=== PATIENT | female | born 1945 | race American Indian/Alaskan Native ===

== ENCOUNTER 2016-10-08 07:56 | Day surgery (SDC) | payer OTHER ==
[2016-10-07 13:28] VITALS: BMI 21.0
[2016-10-08] MEDS ORDERED: PROPOFOL 20 ML ONE ×2 (09:37)
[2016-10-08 10:30] VITALS: TEMP 97.9
[2016-10-08 12:22] VITALS: BP 144/61; PULSE 60
--- NOTE | 2016-10-09 13:25 | PATH ---
Surgical Pathology Report Patient Name: CAROLYN BUENO [facility] Rec. #: [id number] /Age/Gender: 1945 (Age: 71) / F Account: [id number] Location: [facility] Taken: 10/08/2016 Received: 10/08/2016 Reported: 10/09/2016 Physicians: Luis Markham M.D. Specimen(s) Received BX ANTRUM Clinical History Screening/weight loss Normal EGD, colon diverticula Final Diagnosis STOMACH, ANTRUM, BIOPSY: GASTRIC ANTRAL MUCOSA WITH MINIMAL CHRONIC GASTRITIS. IMMUNOSTAIN FOR H. PYLORI IS NEGATIVE FOR ORGANISMS. Electronically Signed Desmond Cazares M.D. Gross Description Received in formalin, labeled "biopsy antrum" are 2 king, irregular portions of soft tissue measuring 0.2-0.4 cm in greatest dimension. The specimens are submitted in toto in one cassette. [facility]/10/08/2016 [facility]/10/08/2016
== END 2016-10-08 11:35 | disposition home or self-care (01) ==
LOC: JASU-ENDO 07:56
PROVIDERS: ATTEND Internal Medicine Gastroenterology
PROC: 0DJ08ZZ Inspection of Upper Intestinal Tract, Via Natural or Artificial Opening Endoscopic (ICD-10-PCS; principal; 2016-10-08 09:45)
DX: R63.4 Abnormal weight loss (principal); R63.0 Anorexia; R14.2 Eructation; R53.1 Weakness; I10 Essential (primary) hypertension
CPT/HCPCS: 88305-TC; 88342-TC

== ENCOUNTER 2021-10-25 14:53 | Inpatient (IN) | payer OTHER ==
[2021-10-25] MEDS ORDERED: ACETAMINOPHEN 1000 MG/100 ML BAG IVPB ONE (16:18)
[2021-10-25] MEDS ORDERED: FAMOTIDINE 20 MG/50 ML IVPB 20 MG/50 ML MG IVPB ONE ×2 (16:18→18:43)
[2021-10-25] MEDS ORDERED: ONDANSETRON 4 MG/2 ML VIAL IVPUSH ONE (16:18)
[2021-10-25] MEDS ORDERED: LACTATED RINGERS SOLUTION 1000 ML INFUS.BAG IV ONE (16:18)
[2021-10-25] MEDS ORDERED: ONDANSETRON 4 MG/2 ML VIAL ONE (17:10)
[2021-10-25] MEDS ORDERED: ACETAMINOPHEN INJECTION 100 ML IVPB ONE (17:10)
[2021-10-25 18:32] LABS: BASO % 0.4 % (0-2.0); EOS % 0.4 % (0-4.5); HEMATOCRIT 41.3 % (32.4-45.2); HEMOGLOBIN 13.6 GM/dL (10.7-15.3); LYMPH % 20.3 % (8-40); MCH 28.8 pg (25.7-33.7); MCHC 32.9 g/dl (32.0-36.0); MEAN CELL VOLUME 87.5 fl (80-96); MEAN PLT VOLUME 7.6 fl (7.5-11.1); MONO % 9.1 % (3.8-10.2); NEUT % 69.8 % (42.8-82.8); PLATELET COUNT 301 10^3/uL (134-434); RBC 4.72 M/mm3 (3.60-5.2); RDW 12.3 % (11.6-15.6); WHITE BLOOD COUNT 8.5 K/mm3 (4.0-10.0)
[2021-10-25 18:39] LABS: INR 1.11 (0.83-1.09); PROTHROMBIN TIME (PATIENT) 12.8 SEC (9.7-13.0)
[2021-10-25 18:42] LABS: ACTIVATED PTT 31.5 SECONDS (25.2-36.5)
[2021-10-25 18:55] LABS: ALBUMIN 3.6 g/dl (3.4-5.0); BLOOD UREA NITROGEN 8.5 mg/dL (7-18); CALCIUM 9.1 mg/dL (8.5-10.1)
[2021-10-25 18:58] LABS: CREATININE 0.7 mg/dL (0.55-1.3)
[2021-10-25 19:00] LABS: BILIRUBIN,TOTAL 0.4 mg/dL (0.2-1); TOT PROT 7.8 g/dl (6.4-8.2)
[2021-10-25 20:15] LABS: URINE APPEARANCE CLEAR; URINE BILIRUBIN NEGATIVE (NEGATIVE); URINE COLOR YELLOW; URINE GLUCOSE (UA) NEGATIVE (NEGATIVE); URINE KETONE TRACE (NEGATIVE); URINE LEUK ESTERASE NEGATIVE (NEGATIVE); URINE NITRITE NEGATIVE (NEGATIVE); URINE PROTEIN NEGATIVE (NEGATIVE); URINE UROBILINOGEN 0.2 mg/dL (0.2-1.0)
[2021-10-25] MEDS ORDERED: AZITHROMYCIN IVPB 500 MG in DEXTROSE 5%-WATER - 250 ML IVPB ONE (21:08)
[2021-10-25] MEDS ORDERED: CEFTRIAXONE 1,000 MG in DEXTROSE 5%-WATER - 50 ML IVPB ONE (21:08)
[2021-10-25] MEDS ORDERED: AZITHROMYCIN IVPB 500 MG/250 ML BAG IVPB ONE (21:26)
[2021-10-25] MEDS ORDERED: CEFTRIAXONE 1 GM/50 ML BAG ONE (21:26)
[2021-10-26 04:07] VITALS: BMI 20.5
[2021-10-26 09:18] LABS: BASO % 0.4 % (0-2.0); EOS % 1.4 % (0-4.5); HEMATOCRIT 37.9 % (32.4-45.2); HEMOGLOBIN 12.7 GM/dL (10.7-15.3); LYMPH % 20.7 % (8-40); MCH 28.9 pg (25.7-33.7); MCHC 33.7 g/dl (32.0-36.0); MEAN CELL VOLUME 85.7 fl (80-96); MEAN PLT VOLUME 7.4 fl (7.5-11.1); MONO % 9.4 % (3.8-10.2); NEUT % 68.1 % (42.8-82.8); PLATELET COUNT 288 10^3/uL (134-434); RBC 4.42 M/mm3 (3.60-5.2); RDW 12.2 % (11.6-15.6); WHITE BLOOD COUNT 6.1 K/mm3 (4.0-10.0)
[2021-10-26 09:28] LABS: ALBUMIN 3.2 g/dl (3.4-5.0); BLOOD UREA NITROGEN 7.4 mg/dL (7-18); CALCIUM 8.7 mg/dL (8.5-10.1)
[2021-10-26 09:31] LABS: CREATININE 0.5 mg/dL (0.55-1.3); PHOSPHOROUS 3.2 mg/dL (2.5-4.9)
[2021-10-26 09:33] LABS: BILIRUBIN,TOTAL 0.9 mg/dL (0.2-1); TOT PROT 7.2 g/dl (6.4-8.2)
[2021-10-26] MEDS: CEFTRIAXONE 1 GM in DEXTROSE 5%-WATER - 50 ML IVPB SCH (10:06)
[2021-10-26] MEDS: ENOXAPARIN NA (PORCINE) 40 MG/0.4 ML DISP.SYRIN SQ SCH (10:07)
[2021-10-26] MEDS: LACTATED RINGERS SOLUTION 1,000 ML/1,000 ML INFUS.BAG IV SCH (13:28)
[2021-10-26] MEDS: AZITHROMYCIN IVPB 500 MG/250 ML BAG IVPB SCH (13:29)
[2021-10-26] MEDS: ACETAMINOPHEN 325 MG TABLET (FP) PO PRN ×2 (15:31→20:52)
[2021-10-26] MEDS: ATORVASTATIN CA 10 MG TABLET (FP) PO SCH (21:59)
[2021-10-26] MEDS: amLODIPine BESYLATE 10 MG TABLET (FP) PO SCH (23:07)
[2021-10-27 08:58] LABS: BASO % 0.6 % (0-2.0); HEMATOCRIT 38.7 % (32.4-45.2); HEMOGLOBIN 12.6 GM/dL (10.7-15.3); LYMPH % 17.4 % (8-40); MCH 28.7 pg (25.7-33.7); MCHC 32.7 g/dl (32.0-36.0); MEAN PLT VOLUME 7.4 fl (7.5-11.1); MONO % 7.6 % (3.8-10.2); NEUT % 72.4 % (42.8-82.8); PLATELET COUNT 285 10^3/uL (134-434); RBC 4.39 M/mm3 (3.60-5.2); RDW 12.5 % (11.6-15.6); WHITE BLOOD COUNT 7.3 K/mm3 (4.0-10.0)
[2021-10-27] MEDS ORDERED: cefTRIAXone SODIUM 1 GM VIAL ONE (09:12)
[2021-10-27] MEDS: ENOXAPARIN NA (PORCINE) 40 MG/0.4 ML DISP.SYRIN SQ SCH (09:14)
[2021-10-27] MEDS: CEFTRIAXONE 1 GM in DEXTROSE 5%-WATER - 50 ML IVPB SCH (09:14)
[2021-10-27 09:26] LABS: BLOOD UREA NITROGEN 5.8 mg/dL (7-18); CALCIUM 8.8 mg/dL (8.5-10.1)
[2021-10-27 09:29] LABS: CREATININE 0.7 mg/dL (0.55-1.3)
[2021-10-27] MEDS: AZITHROMYCIN IVPB 500 MG/250 ML BAG IVPB SCH (10:06)
[2021-10-27] MEDS: LACTATED RINGERS SOLUTION 1,000 ML/1,000 ML INFUS.BAG IV SCH ×2 (11:08→15:45)
[2021-10-27] MEDS: ACETAMINOPHEN 325 MG TABLET (FP) PO PRN ×2 (11:09→22:06)
[2021-10-27 13:50] LABS: ERYTHROCYTE SEDIMENTATION RATE 35 mm/hr (0-30)
[2021-10-27] MEDS: PANTOPRAZOLE 40 MG TABLET PO SCH (17:28)
[2021-10-27] MEDS ORDERED: BENZOCAINE/MENTH/CETYLPYRD CL 1 EACH LOZENGE MM PRN (18:10)
[2021-10-27 18:38] LABS: N-TERMINAL BNP 112.5 pg/ml (5-450)
[2021-10-27] MEDS ORDERED: amLODIPine BESYLATE 10 MG TABLET (FP) PO SCH (22:00)
[2021-10-27] MEDS: amLODIPine BESYLATE 10 MG TABLET (FP) PO SCH (22:07)
[2021-10-27] MEDS: SIMETHICONE 80 MG TAB.CHEW (FP) PO PRN (22:07)
[2021-10-27] MEDS: ATORVASTATIN CA 10 MG TABLET (FP) PO SCH (22:07)
[2021-10-28] MEDS: ENOXAPARIN NA (PORCINE) 40 MG/0.4 ML DISP.SYRIN SQ SCH (09:43)
[2021-10-28] MEDS: CEFTRIAXONE 1 GM in DEXTROSE 5%-WATER - 50 ML IVPB SCH (09:43)
[2021-10-28] MEDS: PANTOPRAZOLE 40 MG TABLET PO SCH (09:43)
[2021-10-28] MEDS: SIMETHICONE 80 MG TAB.CHEW (FP) PO PRN ×2 (09:44→21:08)
[2021-10-28 09:54] LABS: BASO % 0.5 % (0-2.0); EOS % 2.5 % (0-4.5); HEMATOCRIT 40.5 % (32.4-45.2); HEMOGLOBIN 13.2 GM/dL (10.7-15.3); LYMPH % 27.4 % (8-40); MCH 28.5 pg (25.7-33.7); MCHC 32.6 g/dl (32.0-36.0); MEAN CELL VOLUME 87.6 fl (80-96); MEAN PLT VOLUME 7.6 fl (7.5-11.1); MONO % 8.3 % (3.8-10.2); NEUT % 61.3 % (42.8-82.8); PLATELET COUNT 279 10^3/uL (134-434); RBC 4.62 M/mm3 (3.60-5.2); RDW 12.8 % (11.6-15.6); WHITE BLOOD COUNT 6.8 K/mm3 (4.0-10.0)
[2021-10-28 10:14] LABS: BLOOD UREA NITROGEN 5.1 mg/dL (7-18); CALCIUM 8.8 mg/dL (8.5-10.1)
[2021-10-28 10:18] LABS: CREATININE 0.5 mg/dL (0.55-1.3)
[2021-10-28] MEDS: ALBUTEROL SO4 2.5/IPRATROPIUM 0.5 INH SOL 3 ML VIAL.NEB. NEB SCH ×3 (11:31→20:44)
[2021-10-28] MEDS: LACTATED RINGERS SOLUTION 1,000 ML/1,000 ML INFUS.BAG IV SCH (12:07)
[2021-10-28] MEDS: ACETAMINOPHEN 325 MG TABLET (FP) PO PRN (14:41)
[2021-10-28] MEDS: amLODIPine BESYLATE 10 MG TABLET (FP) PO SCH (21:07)
[2021-10-28] MEDS: ATORVASTATIN CA 10 MG TABLET (FP) PO SCH (21:07)
[2021-10-29] MEDS: ALBUTEROL SO4 2.5/IPRATROPIUM 0.5 INH SOL 3 ML VIAL.NEB. NEB SCH ×4 (07:50→20:20)
[2021-10-29] MEDS: ENOXAPARIN NA (PORCINE) 40 MG/0.4 ML DISP.SYRIN SQ SCH (09:33)
[2021-10-29] MEDS: CEFTRIAXONE 1 GM in DEXTROSE 5%-WATER - 50 ML IVPB SCH (09:33)
[2021-10-29 10:19] LABS: BASO % 0.7 % (0-2.0); EOS % 1.6 % (0-4.5); HEMATOCRIT 38.1 % (32.4-45.2); HEMOGLOBIN 12.4 GM/dL (10.7-15.3); LYMPH % 23.1 % (8-40); MCH 28.4 pg (25.7-33.7); MCHC 32.4 g/dl (32.0-36.0); MEAN CELL VOLUME 87.6 fl (80-96); MEAN PLT VOLUME 7.6 fl (7.5-11.1); MONO % 8.4 % (3.8-10.2); NEUT % 66.2 % (42.8-82.8); PLATELET COUNT 240 10^3/uL (134-434); RBC 4.36 M/mm3 (3.60-5.2); RDW 12.6 % (11.6-15.6); WHITE BLOOD COUNT 6.5 K/mm3 (4.0-10.0)
[2021-10-29 10:48] LABS: BLOOD UREA NITROGEN 7.1 mg/dL (7-18); CALCIUM 8.5 mg/dL (8.5-10.1)
[2021-10-29 10:51] LABS: CREATININE 0.8 mg/dL (0.55-1.3)
[2021-10-29] MEDS: methylPREDNISolone NA SUCC 40 MG/1 ML VIAL IVPUSH SCH ×2 (15:11→18:30)
[2021-10-29] MEDS: ATORVASTATIN CA 10 MG TABLET (FP) PO SCH (21:47)
[2021-10-29] MEDS: amLODIPine BESYLATE 10 MG TABLET (FP) PO SCH (21:47)
[2021-10-30] MEDS: methylPREDNISolone NA SUCC 40 MG/1 ML VIAL IVPUSH SCH ×3 (01:32→18:08)
[2021-10-30] MEDS: ALBUTEROL SO4 2.5/IPRATROPIUM 0.5 INH SOL 3 ML VIAL.NEB. NEB SCH ×4 (08:20→20:51)
[2021-10-30 09:01] LABS: BASO % 0.3 % (0-2.0); HEMATOCRIT 37.5 % (32.4-45.2); HEMOGLOBIN 12.5 GM/dL (10.7-15.3); LYMPH % 24.1 % (8-40); MCH 28.5 pg (25.7-33.7); MCHC 33.2 g/dl (32.0-36.0); MEAN CELL VOLUME 85.6 fl (80-96); MEAN PLT VOLUME 7.7 fl (7.5-11.1); MONO % 4.9 % (3.8-10.2); NEUT % 70.7 % (42.8-82.8); PLATELET COUNT 253 10^3/uL (134-434); RBC 4.38 M/mm3 (3.60-5.2); RDW 12.2 % (11.6-15.6); WHITE BLOOD COUNT 4.3 K/mm3 (4.0-10.0)
[2021-10-30 09:31] LABS: BLOOD UREA NITROGEN 8.7 mg/dL (7-18); CALCIUM 8.8 mg/dL (8.5-10.1); MAGNESIUM 2.1 mg/dL (1.8-2.4)
[2021-10-30 09:33] LABS: CREATININE 0.6 mg/dL (0.55-1.3); PHOSPHOROUS 3.6 mg/dL (2.5-4.9)
[2021-10-30] MEDS: CEFTRIAXONE 1 GM in DEXTROSE 5%-WATER - 50 ML IVPB SCH (09:42)
[2021-10-30] MEDS: ACETAMINOPHEN 325 MG TABLET (FP) PO PRN ×2 (11:44→21:11)
[2021-10-30] MEDS: amLODIPine BESYLATE 10 MG TABLET (FP) PO SCH (21:10)
[2021-10-30] MEDS: ATORVASTATIN CA 10 MG TABLET (FP) PO SCH (21:10)
[2021-10-31] MEDS: methylPREDNISolone NA SUCC 40 MG/1 ML VIAL IVPUSH SCH ×3 (01:41→17:00)
[2021-10-31] MEDS: ALBUTEROL SO4 2.5/IPRATROPIUM 0.5 INH SOL 3 ML VIAL.NEB. NEB SCH ×4 (07:41→20:00)
[2021-10-31 09:14] LABS: BASO % 0.1 % (0-2.0); HEMATOCRIT 39.8 % (32.4-45.2); HEMOGLOBIN 13.3 GM/dL (10.7-15.3); LYMPH % 10.3 % (8-40); MCH 29.1 pg (25.7-33.7); MCHC 33.3 g/dl (32.0-36.0); MEAN CELL VOLUME 87.3 fl (80-96); MEAN PLT VOLUME 7.4 fl (7.5-11.1); MONO % 7.4 % (3.8-10.2); NEUT % 82.2 % (42.8-82.8); PLATELET COUNT 282 10^3/uL (134-434); RBC 4.56 M/mm3 (3.60-5.2); RDW 12.6 % (11.6-15.6); WHITE BLOOD COUNT 15.8 K/mm3 (4.0-10.0)
[2021-10-31 09:32] LABS: BLOOD UREA NITROGEN 16.6 mg/dL (7-18); CALCIUM 9.3 mg/dL (8.5-10.1)
[2021-10-31 09:35] LABS: CREATININE 0.8 mg/dL (0.55-1.3)
[2021-10-31] MEDS ORDERED: methylPREDNISolone NA SUCC 40 MG/1 ML VIAL IVPUSH SCH (10:00)
[2021-10-31] MEDS: CEFTRIAXONE 1 GM in DEXTROSE 5%-WATER - 50 ML IVPB SCH (10:58)
[2021-10-31] MEDS ORDERED: CEFTRIAXONE 1 GM in DEXTROSE 5%-WATER - 50 ML IVPB ONE (14:56)
[2021-10-31] MEDS: ACETAMINOPHEN 325 MG TABLET (FP) PO PRN ×2 (15:00→21:04)
[2021-10-31 16:08] LABS: ATYPICAL pANCA <1:20 titer (Neg:<1:20); C-ANCA <1:20 titer (Neg:<1:20)
[2021-10-31] MEDS: guaiFENesin 600 MG TABLET.ER (FP) PO SCH (21:01)
[2021-10-31] MEDS: ATORVASTATIN CA 10 MG TABLET (FP) PO SCH (21:01)
[2021-10-31] MEDS: amLODIPine BESYLATE 10 MG TABLET (FP) PO SCH (21:01)
[2021-11-01] MEDS: methylPREDNISolone NA SUCC 40 MG/1 ML VIAL IVPUSH SCH ×3 (01:10→17:48)
[2021-11-01] MEDS: ALBUTEROL SO4 2.5/IPRATROPIUM 0.5 INH SOL 3 ML VIAL.NEB. NEB SCH ×4 (07:22→20:00)
[2021-11-01] MEDS: CEFTRIAXONE 1 GM in DEXTROSE 5%-WATER - 50 ML IVPB SCH (10:16)
[2021-11-01] MEDS: guaiFENesin 600 MG TABLET.ER (FP) PO SCH ×2 (10:17→21:46)
[2021-11-01] MEDS: ENOXAPARIN NA (PORCINE) 40 MG/0.4 ML DISP.SYRIN SQ SCH (10:17)
[2021-11-01] MEDS: MULTIVITAMINS THER W-MINERALS COMBO TABLET (FP) PO SCH (10:17)
[2021-11-01 11:24] LABS: BASO % 0.2 % (0-2.0); HEMATOCRIT 38.1 % (32.4-45.2); HEMOGLOBIN 12.6 GM/dL (10.7-15.3); LYMPH % 7.2 % (8-40); MCH 28.8 pg (25.7-33.7); MEAN CELL VOLUME 87.2 fl (80-96); MEAN PLT VOLUME 7.4 fl (7.5-11.1); NEUT % 85.6 % (42.8-82.8); PLATELET COUNT 259 10^3/uL (134-434); RBC 4.37 M/mm3 (3.60-5.2); RDW 12.5 % (11.6-15.6); WHITE BLOOD COUNT 13.6 K/mm3 (4.0-10.0)
[2021-11-01 11:45] LABS: CALCIUM 8.4 mg/dL (8.5-10.1)
[2021-11-01 11:48] LABS: CREATININE 0.7 mg/dL (0.55-1.3)
[2021-11-01] MEDS: ACETAMINOPHEN 325 MG TABLET (FP) PO PRN ×2 (12:10→21:44)
[2021-11-01 14:35] LABS: SARS COV-2 MOLECULAR IN-HOUSE NEGATIVE (NEGATIVE)
[2021-11-01] MEDS ORDERED: PIPERACILLIN/TAZOBACTAM 3.375 GM VIAL IVPB ONE (17:36)
[2021-11-01] MEDS: PIPERACILLIN/TAZOB 3.375 GM 3.375 GM in DEXTROSE 5%-WATER - 50 ML IVPB SCH (17:49)
[2021-11-01] MEDS ORDERED: PIPERACILLIN/TAZOB 4.5 GM 4.5 GM in DEXTROSE 5%-WATER 100 ML IVPB SCH (21:00)
[2021-11-01] MEDS: ATORVASTATIN CA 10 MG TABLET (FP) PO SCH (21:46)
[2021-11-01] MEDS: amLODIPine BESYLATE 10 MG TABLET (FP) PO SCH (21:46)
[2021-11-02] MEDS: PIPERACILLIN/TAZOB 3.375 GM 3.375 GM in DEXTROSE 5%-WATER - 50 ML IVPB SCH ×3 (02:03→17:47)
[2021-11-02] MEDS: methylPREDNISolone NA SUCC 40 MG/1 ML VIAL IVPUSH SCH ×3 (02:04→17:47)
[2021-11-02] MEDS: ALBUTEROL SO4 2.5/IPRATROPIUM 0.5 INH SOL 3 ML VIAL.NEB. NEB SCH (07:48)
[2021-11-02] MEDS: MULTIVITAMINS THER W-MINERALS COMBO TABLET (FP) PO SCH (10:09)
[2021-11-02] MEDS: guaiFENesin 600 MG TABLET.ER (FP) PO SCH ×2 (10:09→21:29)
[2021-11-02] MEDS: ENOXAPARIN NA (PORCINE) 40 MG/0.4 ML DISP.SYRIN SQ SCH (10:09)
[2021-11-02] MEDS: ACETAMINOPHEN 325 MG TABLET (FP) PO PRN (10:19)
[2021-11-02 11:26] LABS: BASO % 0.1 % (0-2.0); HEMATOCRIT 39.8 % (32.4-45.2); HEMOGLOBIN 12.9 GM/dL (10.7-15.3); LYMPH % 10.2 % (8-40); MCHC 32.4 g/dl (32.0-36.0); MEAN CELL VOLUME 86.4 fl (80-96); MEAN PLT VOLUME 7.8 fl (7.5-11.1); MONO % 9.3 % (3.8-10.2); NEUT % 80.4 % (42.8-82.8); PLATELET COUNT 288 10^3/uL (134-434); RBC 4.61 M/mm3 (3.60-5.2); RDW 12.5 % (11.6-15.6); WHITE BLOOD COUNT 12.3 K/mm3 (4.0-10.0)
[2021-11-02 11:51] LABS: BLOOD UREA NITROGEN 17.3 mg/dL (7-18); CALCIUM 8.4 mg/dL (8.5-10.1)
[2021-11-02 11:54] LABS: CREATININE 0.7 mg/dL (0.55-1.3)
[2021-11-02 16:10] LABS: MYCOPLASMA PNEUMONIAE,IG G AB 318 U/mL (0-99); MYCOPLASMA PNEUMONIAE,IGM AB <770 U/mL (0-769)
[2021-11-02] MEDS: amLODIPine BESYLATE 10 MG TABLET (FP) PO SCH (21:29)
[2021-11-02] MEDS: ATORVASTATIN CA 10 MG TABLET (FP) PO SCH (21:29)
[2021-11-03] MEDS: methylPREDNISolone NA SUCC 40 MG/1 ML VIAL IVPUSH SCH ×3 (01:03→17:22)
[2021-11-03] MEDS: PIPERACILLIN/TAZOB 3.375 GM 3.375 GM in DEXTROSE 5%-WATER - 50 ML IVPB SCH ×3 (01:03→17:23)
[2021-11-03] MEDS: ACETAMINOPHEN 325 MG TABLET (FP) PO PRN ×2 (01:04→12:18)
[2021-11-03] MEDS: MULTIVITAMINS THER W-MINERALS COMBO TABLET (FP) PO SCH (09:34)
[2021-11-03] MEDS: guaiFENesin 600 MG TABLET.ER (FP) PO SCH ×2 (09:34→21:34)
[2021-11-03] MEDS: ENOXAPARIN NA (PORCINE) 40 MG/0.4 ML DISP.SYRIN SQ SCH (09:35)
[2021-11-03] MEDS ORDERED: AZITHROMYCIN IVPB 500 MG in DEXTROSE 5%-WATER - 250 ML IVPB SCH (10:00)
[2021-11-03] MEDS: AZITHROMYCIN IVPB 500 MG/250 ML BAG IVPB SCH (10:54)
[2021-11-03 11:38] LABS: BASO % 0.1 % (0-2.0); HEMATOCRIT 40.4 % (32.4-45.2); HEMOGLOBIN 13.2 GM/dL (10.7-15.3); LYMPH % 10.2 % (8-40); MCH 28.4 pg (25.7-33.7); MCHC 32.7 g/dl (32.0-36.0); MEAN CELL VOLUME 86.7 fl (80-96); MEAN PLT VOLUME 7.5 fl (7.5-11.1); MONO % 13.4 % (3.8-10.2); NEUT % 76.3 % (42.8-82.8); PLATELET COUNT 285 10^3/uL (134-434); RBC 4.65 M/mm3 (3.60-5.2); RDW 12.6 % (11.6-15.6); WHITE BLOOD COUNT 12.4 K/mm3 (4.0-10.0)
[2021-11-03 12:01] LABS: CALCIUM 8.6 mg/dL (8.5-10.1)
[2021-11-03 12:02] LABS: ALBUMIN 2.9 g/dl (3.4-5.0)
[2021-11-03 12:05] LABS: CREATININE 0.7 mg/dL (0.55-1.3)
[2021-11-03 12:07] LABS: BILIRUBIN,TOTAL 0.4 mg/dL (0.2-1); TOT PROT 6.6 g/dl (6.4-8.2)
[2021-11-03] MEDS ORDERED: LOPERAMIDE HCL 2 MG CAPSULE PO ONE (15:35)
[2021-11-03] MEDS: NYSTATIN 500,000 UNITS/5 ML SUSPENSION PO SCH ×2 (18:14→23:24)
[2021-11-03] MEDS: amLODIPine BESYLATE 10 MG TABLET (FP) PO SCH (21:34)
[2021-11-04] MEDS: PIPERACILLIN/TAZOB 3.375 GM 3.375 GM in DEXTROSE 5%-WATER - 50 ML IVPB SCH ×3 (01:11→17:22)
[2021-11-04] MEDS: methylPREDNISolone NA SUCC 40 MG/1 ML VIAL IVPUSH SCH ×2 (01:11→09:46)
[2021-11-04] MEDS: NYSTATIN 500,000 UNITS/5 ML SUSPENSION PO SCH ×3 (06:18→17:22)
[2021-11-04] MEDS ORDERED: PIPERACILLIN/TAZOBACTAM 3.375 GM VIAL IVPB ONE (09:45)
[2021-11-04] MEDS: guaiFENesin 600 MG TABLET.ER (FP) PO SCH ×2 (09:46→21:42)
[2021-11-04] MEDS: MULTIVITAMINS THER W-MINERALS COMBO TABLET (FP) PO SCH (09:46)
[2021-11-04] MEDS: ACETAMINOPHEN 325 MG TABLET (FP) PO PRN (09:46)
[2021-11-04] MEDS: ENOXAPARIN NA (PORCINE) 40 MG/0.4 ML DISP.SYRIN SQ SCH (09:49)
[2021-11-04 10:41] LABS: BASO % 0.1 % (0-2.0); HEMOGLOBIN 12.9 GM/dL (10.7-15.3); LYMPH % 15.5 % (8-40); MCH 29.2 pg (25.7-33.7); MCHC 33.8 g/dl (32.0-36.0); MEAN CELL VOLUME 86.4 fl (80-96); MEAN PLT VOLUME 7.4 fl (7.5-11.1); MONO % 9.9 % (3.8-10.2); NEUT % 74.5 % (42.8-82.8); PLATELET COUNT 256 10^3/uL (134-434); RDW 12.5 % (11.6-15.6); WHITE BLOOD COUNT 12.6 K/mm3 (4.0-10.0)
[2021-11-04] MEDS: AZITHROMYCIN IVPB 500 MG/250 ML BAG IVPB SCH (10:49)
[2021-11-04 11:05] LABS: ALBUMIN 2.7 g/dl (3.4-5.0); BLOOD UREA NITROGEN 17.6 mg/dL (7-18)
[2021-11-04 11:07] LABS: CALCIUM 8.1 mg/dL (8.5-10.1); MAGNESIUM 2.2 mg/dL (1.8-2.4); PHOSPHOROUS 2.7 mg/dL (2.5-4.9)
[2021-11-04 11:09] LABS: CREATININE 0.7 mg/dL (0.55-1.3)
[2021-11-04 11:10] LABS: BILIRUBIN,TOTAL 0.4 mg/dL (0.2-1)
[2021-11-04] MEDS: amLODIPine BESYLATE 10 MG TABLET (FP) PO SCH (21:42)
[2021-11-05] MEDS: NYSTATIN 500,000 UNITS/5 ML SUSPENSION PO SCH ×4 (00:40→18:15)
[2021-11-05] MEDS ORDERED: PIPERACILLIN/TAZOBACTAM 3.375 GM VIAL IVPB ONE ×2 (01:51→10:23)
[2021-11-05] MEDS: PIPERACILLIN/TAZOB 3.375 GM 3.375 GM in DEXTROSE 5%-WATER - 50 ML IVPB SCH ×3 (02:10→17:27)
[2021-11-05] MEDS: predniSONE 20 MG TABLET (UD) PO SCH (10:26)
[2021-11-05] MEDS: MULTIVITAMINS THER W-MINERALS COMBO TABLET (FP) PO SCH (10:26)
[2021-11-05] MEDS: ENOXAPARIN NA (PORCINE) 40 MG/0.4 ML DISP.SYRIN SQ SCH (10:26)
[2021-11-05] MEDS: guaiFENesin 600 MG TABLET.ER (FP) PO SCH ×2 (10:26→21:38)
[2021-11-05 10:31] LABS: BASO % 0.2 % (0-2.0); EOS % 0.1 % (0-4.5); HEMATOCRIT 38.2 % (32.4-45.2); HEMOGLOBIN 12.9 GM/dL (10.7-15.3); LYMPH % 17.6 % (8-40); MCH 29.4 pg (25.7-33.7); MCHC 33.9 g/dl (32.0-36.0); MEAN CELL VOLUME 86.8 fl (80-96); MEAN PLT VOLUME 7.5 fl (7.5-11.1); MONO % 8.6 % (3.8-10.2); NEUT % 73.5 % (42.8-82.8); PLATELET COUNT 227 10^3/uL (134-434); RDW 12.5 % (11.6-15.6)
[2021-11-05 10:38] LABS: BLOOD UREA NITROGEN 14.5 mg/dL (7-18)
[2021-11-05 10:39] LABS: ALBUMIN 2.5 g/dl (3.4-5.0); CALCIUM 7.7 mg/dL (8.5-10.1)
[2021-11-05 10:42] LABS: CREATININE 0.7 mg/dL (0.55-1.3)
[2021-11-05 10:43] LABS: BILIRUBIN,TOTAL 0.5 mg/dL (0.2-1); TOT PROT 5.7 g/dl (6.4-8.2)
[2021-11-05] MEDS: amLODIPine BESYLATE 10 MG TABLET (FP) PO SCH (21:38)
[2021-11-06] MEDS: PIPERACILLIN/TAZOB 3.375 GM 3.375 GM in DEXTROSE 5%-WATER - 50 ML IVPB SCH ×3 (01:07→17:17)
[2021-11-06] MEDS: NYSTATIN 500,000 UNITS/5 ML SUSPENSION PO SCH ×4 (01:07→17:17)
[2021-11-06] MEDS: predniSONE 20 MG TABLET (UD) PO SCH (10:29)
[2021-11-06] MEDS: guaiFENesin 600 MG TABLET.ER (FP) PO SCH ×2 (10:30→22:10)
[2021-11-06] MEDS: MULTIVITAMINS THER W-MINERALS COMBO TABLET (FP) PO SCH (10:30)
[2021-11-06] MEDS: ENOXAPARIN NA (PORCINE) 40 MG/0.4 ML DISP.SYRIN SQ SCH (10:32)
[2021-11-06 10:52] LABS: BASO % 0.2 % (0-2.0); EOS % 0.3 % (0-4.5); HEMATOCRIT 38.6 % (32.4-45.2); HEMOGLOBIN 12.9 GM/dL (10.7-15.3); LYMPH % 11.9 % (8-40); MCH 28.8 pg (25.7-33.7); MCHC 33.4 g/dl (32.0-36.0); MEAN CELL VOLUME 86.1 fl (80-96); MEAN PLT VOLUME 7.8 fl (7.5-11.1); MONO % 8.6 % (3.8-10.2); PLATELET COUNT 233 10^3/uL (134-434); RBC 4.48 M/mm3 (3.60-5.2); RDW 12.6 % (11.6-15.6); WHITE BLOOD COUNT 11.8 K/mm3 (4.0-10.0)
[2021-11-06 11:01] LABS: MAGNESIUM 2.2 mg/dL (1.8-2.4)
[2021-11-06 11:05] LABS: PHOSPHOROUS 2.3 mg/dL (2.5-4.9)
[2021-11-06] MEDS: amLODIPine BESYLATE 10 MG TABLET (FP) PO SCH (22:10)
[2021-11-07] MEDS: NYSTATIN 500,000 UNITS/5 ML SUSPENSION PO SCH ×4 (01:00→18:03)
[2021-11-07] MEDS: PIPERACILLIN/TAZOB 3.375 GM 3.375 GM in DEXTROSE 5%-WATER - 50 ML IVPB SCH ×3 (01:45→18:03)
[2021-11-07] MEDS: guaiFENesin 600 MG TABLET.ER (FP) PO SCH ×2 (09:31→21:56)
[2021-11-07] MEDS: MULTIVITAMINS THER W-MINERALS COMBO TABLET (FP) PO SCH (09:31)
[2021-11-07] MEDS: SIMETHICONE 80 MG TAB.CHEW (FP) PO PRN (09:31)
[2021-11-07] MEDS: predniSONE 20 MG TABLET (UD) PO SCH (09:31)
[2021-11-07] MEDS: ENOXAPARIN NA (PORCINE) 40 MG/0.4 ML DISP.SYRIN SQ SCH (09:31)
[2021-11-07 11:40] LABS: BASO % 0.1 % (0-2.0); EOS % 0.5 % (0-4.5); HEMATOCRIT 37.7 % (32.4-45.2); HEMOGLOBIN 12.4 GM/dL (10.7-15.3); LYMPH % 11.1 % (8-40); MCH 28.5 pg (25.7-33.7); MCHC 32.9 g/dl (32.0-36.0); MEAN CELL VOLUME 86.6 fl (80-96); MEAN PLT VOLUME 7.7 fl (7.5-11.1); MONO % 6.5 % (3.8-10.2); NEUT % 81.8 % (42.8-82.8); PLATELET COUNT 228 10^3/uL (134-434); RBC 4.35 M/mm3 (3.60-5.2); RDW 12.6 % (11.6-15.6); WHITE BLOOD COUNT 11.6 K/mm3 (4.0-10.0)
[2021-11-07 12:18] LABS: CALCIUM 7.9 mg/dL (8.5-10.1)
[2021-11-07 12:19] LABS: ALBUMIN 2.3 g/dl (3.4-5.0); BLOOD UREA NITROGEN 11.6 mg/dL (7-18); MAGNESIUM 2.2 mg/dL (1.8-2.4)
[2021-11-07 12:22] LABS: CREATININE 0.6 mg/dL (0.55-1.3); PHOSPHOROUS 2.3 mg/dL (2.5-4.9)
[2021-11-07 12:23] LABS: BILIRUBIN,TOTAL 0.5 mg/dL (0.2-1)
[2021-11-07 12:24] LABS: TOT PROT 5.8 g/dl (6.4-8.2)
[2021-11-07] MEDS ORDERED: PIPERACILLIN/TAZOBACTAM 3.375 GM VIAL IVPB ONE (17:49)
[2021-11-07] MEDS: amLODIPine BESYLATE 10 MG TABLET (FP) PO SCH (21:56)
[2021-11-08] MEDS ORDERED: PIPERACILLIN/TAZOBACTAM 3.375 GM VIAL IVPB ONE ×2 (00:45→00:49)
[2021-11-08] MEDS: NYSTATIN 500,000 UNITS/5 ML SUSPENSION PO SCH ×4 (00:51→17:49)
[2021-11-08] MEDS: PIPERACILLIN/TAZOB 3.375 GM 3.375 GM in DEXTROSE 5%-WATER - 50 ML IVPB SCH ×3 (01:00→17:49)
[2021-11-08] MEDS: predniSONE 20 MG TABLET (UD) PO SCH (09:08)
[2021-11-08] MEDS: guaiFENesin 600 MG TABLET.ER (FP) PO SCH ×2 (09:10→21:01)
[2021-11-08] MEDS: MULTIVITAMINS THER W-MINERALS COMBO TABLET (FP) PO SCH (09:10)
[2021-11-08] MEDS: SIMETHICONE 80 MG TAB.CHEW (FP) PO PRN ×2 (09:21→21:01)
[2021-11-08 11:47] LABS: BASO % 0.2 % (0-2.0); EOS % 0.6 % (0-4.5); HEMATOCRIT 39.7 % (32.4-45.2); HEMOGLOBIN 12.7 GM/dL (10.7-15.3); LYMPH % 8.5 % (8-40); MCH 27.7 pg (25.7-33.7); MCHC 31.9 g/dl (32.0-36.0); MEAN CELL VOLUME 86.7 fl (80-96); MONO % 6.6 % (3.8-10.2); NEUT % 84.1 % (42.8-82.8); PLATELET COUNT 261 10^3/uL (134-434); RBC 4.57 M/mm3 (3.60-5.2); RDW 12.6 % (11.6-15.6); WHITE BLOOD COUNT 14.6 K/mm3 (4.0-10.0)
[2021-11-08 12:27] LABS: CALCIUM 8.5 mg/dL (8.5-10.1)
[2021-11-08 12:28] LABS: ALBUMIN 2.5 g/dl (3.4-5.0); BLOOD UREA NITROGEN 8.2 mg/dL (7-18); MAGNESIUM 2.3 mg/dL (1.8-2.4)
[2021-11-08 12:30] LABS: CREATININE 0.7 mg/dL (0.55-1.3)
[2021-11-08 12:31] LABS: BILIRUBIN,TOTAL 0.5 mg/dL (0.2-1)
[2021-11-08 12:32] LABS: TOT PROT 6.1 g/dl (6.4-8.2)
[2021-11-08 20:46] VITALS: RESP 20
[2021-11-08] MEDS: amLODIPine BESYLATE 10 MG TABLET (FP) PO SCH (21:01)
[2021-11-09] MEDS: PIPERACILLIN/TAZOB 3.375 GM 3.375 GM in DEXTROSE 5%-WATER - 50 ML IVPB SCH ×3 (01:09→17:19)
[2021-11-09] MEDS: NYSTATIN 500,000 UNITS/5 ML SUSPENSION PO SCH ×4 (01:09→17:19)
[2021-11-09] MEDS: MULTIVITAMINS THER W-MINERALS COMBO TABLET (FP) PO SCH (09:44)
[2021-11-09] MEDS: guaiFENesin 600 MG TABLET.ER (FP) PO SCH ×2 (09:44→21:29)
[2021-11-09] MEDS: predniSONE 20 MG TABLET (UD) PO SCH (09:44)
[2021-11-09] MEDS: SIMETHICONE 80 MG TAB.CHEW (FP) PO PRN ×2 (09:50→21:29)
[2021-11-09] MEDS: PANTOPRAZOLE 40 MG TABLET PO SCH (10:56)
[2021-11-09] MEDS ORDERED: INSULIN SLIDING SCALE (NOVOLOG) 1 VIAL SQ SCH (11:00)
[2021-11-09 11:19] LABS: BASO % 0.1 % (0-2.0); EOS % 0.7 % (0-4.5); HEMATOCRIT 36.3 % (32.4-45.2); HEMOGLOBIN 12.5 GM/dL (10.7-15.3); LYMPH % 10.2 % (8-40); MCH 29.8 pg (25.7-33.7); MCHC 34.5 g/dl (32.0-36.0); MEAN CELL VOLUME 86.5 fl (80-96); MEAN PLT VOLUME 7.7 fl (7.5-11.1); MONO % 6.5 % (3.8-10.2); NEUT % 82.5 % (42.8-82.8); PLATELET COUNT 228 10^3/uL (134-434); RDW 12.3 % (11.6-15.6); WHITE BLOOD COUNT 14.4 K/mm3 (4.0-10.0)
[2021-11-09] MEDS ORDERED: INSULIN (NOVOLOG) ASPART 100 UNITS/ML 10ML VIAL ONE ×2 (11:23→20:55)
[2021-11-09 11:46] LABS: CALCIUM 8.4 mg/dL (8.5-10.1)
[2021-11-09 11:47] LABS: ALBUMIN 2.5 g/dl (3.4-5.0); BLOOD UREA NITROGEN 13.4 mg/dL (7-18)
[2021-11-09 11:50] LABS: CREATININE 0.6 mg/dL (0.55-1.3); PHOSPHOROUS 2.2 mg/dL (2.5-4.9)
[2021-11-09 11:51] LABS: BILIRUBIN,TOTAL 0.4 mg/dL (0.2-1)
[2021-11-09] MEDS: INSULIN SLIDING SCALE (NOVOLOG) 1 VIAL SQ SCH ×2 (16:49→21:24)
[2021-11-09] MEDS: amLODIPine BESYLATE 10 MG TABLET (FP) PO SCH (21:29)
[2021-11-10] MEDS: NYSTATIN 500,000 UNITS/5 ML SUSPENSION PO SCH ×5 (01:27→23:47)
[2021-11-10] MEDS: PIPERACILLIN/TAZOB 3.375 GM 3.375 GM in DEXTROSE 5%-WATER - 50 ML IVPB SCH ×3 (01:28→17:21)
[2021-11-10] MEDS: PANTOPRAZOLE 40 MG TABLET PO SCH (09:59)
[2021-11-10] MEDS: MULTIVITAMINS THER W-MINERALS COMBO TABLET (FP) PO SCH (09:59)
[2021-11-10] MEDS: guaiFENesin 600 MG TABLET.ER (FP) PO SCH ×2 (09:59→21:01)
[2021-11-10] MEDS: predniSONE 20 MG TABLET (UD) PO SCH (09:59)
[2021-11-10 10:58] LABS: CALCIUM 8.2 mg/dL (8.5-10.1)
[2021-11-10 10:59] LABS: ALBUMIN 2.3 g/dl (3.4-5.0); BLOOD UREA NITROGEN 11.8 mg/dL (7-18); MAGNESIUM 2.2 mg/dL (1.8-2.4)
[2021-11-10 11:00] LABS: PHOSPHOROUS 2.3 mg/dL (2.5-4.9)
[2021-11-10 11:01] LABS: CREATININE 0.7 mg/dL (0.55-1.3); TOT PROT 6.2 g/dl (6.4-8.2)
[2021-11-10 11:05] LABS: BILIRUBIN,TOTAL 0.6 mg/dL (0.2-1)
[2021-11-10] MEDS: INSULIN SLIDING SCALE (NOVOLOG) 1 VIAL SQ SCH ×3 (11:47→21:02)
[2021-11-10 13:55] LABS: BASO % 0.3 % (0-2.0); EOS % 0.2 % (0-4.5); HEMATOCRIT 39.1 % (32.4-45.2); HEMOGLOBIN 12.8 GM/dL (10.7-15.3); LYMPH % 5.7 % (8-40); MCH 28.3 pg (25.7-33.7); MCHC 32.8 g/dl (32.0-36.0); MEAN CELL VOLUME 86.4 fl (80-96); MONO % 3.4 % (3.8-10.2); NEUT % 90.4 % (42.8-82.8); PLATELET COUNT 249 10^3/uL (134-434); RBC 4.52 M/mm3 (3.60-5.2); RDW 12.6 % (11.6-15.6); WHITE BLOOD COUNT 15.5 K/mm3 (4.0-10.0)
[2021-11-10] MEDS: SIMETHICONE 80 MG TAB.CHEW (FP) PO PRN (17:55)
[2021-11-10] MEDS: amLODIPine BESYLATE 10 MG TABLET (FP) PO SCH (21:02)
[2021-11-11] MEDS: PIPERACILLIN/TAZOB 3.375 GM 3.375 GM in DEXTROSE 5%-WATER - 50 ML IVPB SCH ×2 (01:14→10:07)
[2021-11-11] MEDS: NYSTATIN 500,000 UNITS/5 ML SUSPENSION PO SCH ×2 (05:45→12:38)
[2021-11-11] MEDS: INSULIN SLIDING SCALE (NOVOLOG) 1 VIAL SQ SCH ×3 (06:50→11:56)
[2021-11-11] MEDS: PANTOPRAZOLE 40 MG TABLET PO SCH (10:06)
[2021-11-11] MEDS: predniSONE 20 MG TABLET (UD) PO SCH (10:06)
[2021-11-11] MEDS: MULTIVITAMINS THER W-MINERALS COMBO TABLET (FP) PO SCH (10:06)
[2021-11-11] MEDS: guaiFENesin 600 MG TABLET.ER (FP) PO SCH (10:06)
[2021-11-11 14:32] VITALS: BP 146/69; PULSE 82; TEMP 99.1
[2021-11-11] MEDS ORDERED: AMOX TR/POT CLAV 875MG/125MG TABLETS (FP) PO SCH (17:30)
[2021-11-11] MEDS ORDERED: GABAPENTIN 300 MG CAPSULE PO SCH (22:00)
== END 2021-11-11 17:04 | disposition home or self-care (01) | DRG 194 ==
LOC: JER 14:53 → JERBED 21:03 → J7W 10-26 03:33 → J6S 10-26 17:42
PROVIDERS: ADMIT Internal Medicine; ATTEND Internal Medicine
DX: J18.9 Pneumonia, unspecified organism (principal); J44.0 Chronic obstructive pulmonary disease with (acute) lower respiratory infection; R64 Cachexia; N13.0 Hydronephrosis with ureteropelvic junction obstruction; J98.11 Atelectasis; I10 Essential (primary) hypertension; E78.5 Hyperlipidemia, unspecified; E03.9 Hypothyroidism, unspecified; K21.9 Gastro-esophageal reflux disease without esophagitis; Z68.20 Body mass index [BMI] 20.0-20.9, adult; R19.7 Diarrhea, unspecified; R09.02 Hypoxemia; R11.2 Nausea with vomiting, unspecified; D72.829 Elevated white blood cell count, unspecified; B37.9 Candidiasis, unspecified; R10.13 Epigastric pain; R91.1 Solitary pulmonary nodule
CPT/HCPCS: 0241U-QW; 36415; 71045-TC-FY; 71250-TC; 74177-TC; 80048; 80053; 81003; 82103; 82550; 82962; 83520; 83605; 83690; 83735; 83880; 84100; 84439; 84443; 85025; 85610; 85651; 85730; 86038; 86140; 86256; 86738; 86850; 86900; 86901; 87040; 87045; 87046; 87070; 87086; 87205; 87209; 87324; 87449; 87493; 87633; 87899; 93005; 93010; 93306-TC; 94640; 94761; 97116-GP; 97162-GP; 99285-25; C9803-CS; Q9967; U0003; U0005

== ENCOUNTER 2021-11-19 11:34 | Inpatient (IN) | payer OTHER ==
[2021-11-19] MEDS ORDERED: methylPREDNISolone NA SUCC 125 MG/2 ML VIAL IVPUSH ONE (11:51)
[2021-11-19] MEDS ORDERED: ALBUTEROL SO4 2.5/IPRATROPIUM 0.5 INH SOL 3 ML VIAL.NEB. NEB ONE ×4 (11:51→12:49)
[2021-11-19] MEDS ORDERED: methylPREDNISolone NA SUCC 125 MG/2 ML VIAL ONE (12:50)
[2021-11-19 13:15] LABS: INR 1.17 (0.83-1.09); PROTHROMBIN TIME (PATIENT) 13.5 SEC (9.7-13.0)
[2021-11-19 13:16] LABS: VENOUS BASE EXCESS 1.7 mmol/L (-2-2); VENOUS O2 SATURATION 61.4 % (70-80); VENOUS PCO2 53.1 mmHg (38-52); VENOUS PH 7.346 (7.310-7.410)
[2021-11-19 13:17] LABS: HEMATOCRIT 39.3 % (32.4-45.2); HEMOGLOBIN 12.7 GM/dL (10.7-15.3); MCH 28.1 pg (25.7-33.7); MCHC 32.4 g/dl (32.0-36.0); MEAN CELL VOLUME 86.7 fl (80-96); MEAN PLT VOLUME 8.1 fl (7.5-11.1); PLATELET COUNT 199 10^3/uL (134-434); RBC 4.53 M/mm3 (3.60-5.2); RDW 13.2 % (11.6-15.6); WHITE BLOOD COUNT 16.1 K/mm3 (4.0-10.0)
[2021-11-19 13:21] LABS: CHLORIDE 95 mmol/L (98-107); SODIUM 135 mmol/L (136-145)
[2021-11-19 13:25] LABS: ALBUMIN 2.5 g/dl (3.4-5.0); ANION GAP 13 MMOL/L (8-16); BLOOD UREA NITROGEN 17.8 mg/dL (7-18); CO2 27 mmol/L (21-32); GLUCOSE,RANDOM 233 mg/dL (74-106); MAGNESIUM 2.2 mg/dL (1.8-2.4)
[2021-11-19 13:27] LABS: CREATININE 0.9 mg/dL (0.55-1.3); PHOSPHOROUS 3.7 mg/dL (2.5-4.9); SGOT/AST 81 U/L (15-37); SGPT/ALT 82 U/L (13-61)
[2021-11-19 13:28] LABS: BILIRUBIN,TOTAL 0.6 mg/dL (0.2-1)
[2021-11-19 13:45] LABS: ALK PHOS 187 U/L (45-117)
[2021-11-19] MEDS ORDERED: CEFTRIAXONE 1 GM in DEXTROSE 5%-WATER - 50 ML IVPB ONE (13:47)
[2021-11-19] MEDS ORDERED: AZITHROMYCIN IVPB 250 MG in DEXTROSE 5%-WATER - 250 ML IVPB ONE (13:47)
[2021-11-19] MEDS ORDERED: ASPIRIN 81 MG CHEWABLE TABLETS ONE (13:49)
[2021-11-19 13:53] LABS: ANISOCYTOSIS 0; MACROCYTOSIS 0
[2021-11-19 14:05] LABS: LACTIC ACID 7.2 mmol/L (0.4-2.0)
[2021-11-19 14:07] LABS: ACTIVATED PTT 27.2 SECONDS (25.2-36.5)
[2021-11-19 14:25] LABS: N-TERMINAL BNP 1447.7 pg/ml (5-450)
[2021-11-19] MEDS ORDERED: AZITHROMYCIN IVPB 500 MG/250 ML BAG IVPB ONE (16:33)
[2021-11-19] MEDS ORDERED: CEFTRIAXONE 1 GM/50 ML BAG ONE (16:33)
[2021-11-19 17:26] LABS: LACTIC ACID 3.2 mmol/L (0.4-2.0)
[2021-11-19 18:32] LABS: ALLENS TEST POSITIVE; ARTERIAL BLD GAS O2 SATURATION 97.2 % (95-98); ARTERIAL BLOOD GAS BASE EXCESS 8.1 mmol/L (-2-2); ARTERIAL BLOOD GAS PO2 89.9 mmHg (80-100); ARTERIAL BLOOD GAS pH 7.463 (7.350-7.450)
[2021-11-19 18:33] LABS: VENT MODE S/T; VENT RATE 12
[2021-11-19] MEDS ORDERED: PIPERACILLIN/TAZOB 4.5 GM 4.5 GM in DEXTROSE 5%-WATER 100 ML IVPB ONE (19:05)
[2021-11-19] MEDS ORDERED: FLU VACC QS2022-23(6MOS UP)/PF 60 MCG/0.5 ML SYRINGE IM ONE (20:54)
[2021-11-19] MEDS: MUPIROCIN 2% TOPICAL OINTMENT FOR DECOLONIZATION NS SCH (21:45)
[2021-11-19] MEDS: CHLORHEXIDINE GLUCONATE 4% CLEANSER FOR DECOLONIZATION TP SCH (21:45)
[2021-11-19 22:29] LABS: EPI CELLS 15 /uL (0-25.1); HYALINE CASTS 0 /uL (0-3.1); PH,URINE 6.5 (5.0-8.0); URINE APPEARANCE CLEAR; URINE BACTERIA 4 /uL (0-1359); URINE BILIRUBIN NEGATIVE (NEGATIVE); URINE COLOR YELLOW; URINE GLUCOSE (UA) NEGATIVE (NEGATIVE); URINE KETONE NEGATIVE (NEGATIVE); URINE LEUK ESTERASE NEGATIVE (NEGATIVE); URINE NITRITE NEGATIVE (NEGATIVE); URINE PROTEIN 1+ (NEGATIVE); URINE RBC 13 /uL (0-23.9); URINE UROBILINOGEN 0.2 mg/dL (0.2-1.0); URINE WBC 13 /uL (0-25.8)
[2021-11-19] MEDS ORDERED: ALBUTEROL SO4 0.083% IH SOL 2.5 MG/3 ML VIAL.NEB. NEB PRN (23:11)
[2021-11-20] MEDS: PIPERACILLIN/TAZOB 2.25 GM 2.25 GM in DEXTROSE 5%-WATER - 50 ML IVPB SCH ×2 (01:36→10:00)
[2021-11-20] MEDS ORDERED: PIPERACILLIN/TAZOB 2.25 GM 2.25 GM in DEXTROSE 5%-WATER - 50 ML IVPB SCH (02:00)
[2021-11-20] MEDS: methylPREDNISolone NA SUCC 40 MG/1 ML VIAL IVPUSH SCH ×3 (02:41→15:38)
[2021-11-20] MEDS ORDERED: VANCOMYCIN/WATER FOR INJ (PEG) 1,000 MG/200 ML BAG IVPB SCH ×2 (06:00)
[2021-11-20] MEDS ORDERED: VANCOMYCIN 1 GM in D5W (PRE-DOCKED) 1,000 MG/250 ML IVPB SCH (06:00)
[2021-11-20] MEDS ORDERED: SODIUM CHLORIDE 1,000 ML IV SCH (08:00)
[2021-11-20 08:03] LABS: HEMATOCRIT 35.8 % (32.4-45.2); HEMOGLOBIN 11.9 GM/dL (10.7-15.3); MCH 28.7 pg (25.7-33.7); MCHC 33.3 g/dl (32.0-36.0); MEAN CELL VOLUME 86.1 fl (80-96); MEAN PLT VOLUME 8.1 fl (7.5-11.1); PLATELET COUNT 171 10^3/uL (134-434); RBC 4.16 M/mm3 (3.60-5.2); RDW 13.2 % (11.6-15.6); WHITE BLOOD COUNT 18.1 K/mm3 (4.0-10.0)
[2021-11-20 08:25] LABS: CALCIUM 8.3 mg/dL (8.5-10.1)
[2021-11-20 08:26] LABS: ALBUMIN 2.3 g/dl (3.4-5.0); BLOOD UREA NITROGEN 17.5 mg/dL (7-18); MAGNESIUM 2.5 mg/dL (1.8-2.4)
[2021-11-20 08:29] LABS: CREATININE 0.5 mg/dL (0.55-1.3); PHOSPHOROUS 3.9 mg/dL (2.5-4.9)
[2021-11-20 08:32] LABS: BILIRUBIN,TOTAL 0.9 mg/dL (0.2-1); TOT PROT 6.2 g/dl (6.4-8.2)
[2021-11-20 10:22] LABS: ANISOCYTOSIS 1+; MACROCYTOSIS 0; PLATELET ESTIMATE DECREASED
[2021-11-20 10:56] LABS: ARTERIAL BLD GAS O2 SATURATION 97.9 % (95-98); ARTERIAL BLOOD GAS BASE EXCESS 7.2 mmol/L (-2-2); ARTERIAL BLOOD GAS PO2 103.7 mmHg (80-100); ARTERIAL BLOOD GAS pH 7.442 (7.350-7.450)
[2021-11-20 10:57] LABS: ALLENS TEST POSITIVE; VENT MODE S/T
[2021-11-20 10:58] LABS: VENT RATE 12
[2021-11-20] MEDS: AZITHROMYCIN IVPB 500 MG/250 ML BAG IVPB SCH (11:04)
[2021-11-20] MEDS: MUPIROCIN 2% TOPICAL OINTMENT FOR DECOLONIZATION NS SCH ×2 (11:14→21:43)
[2021-11-20] MEDS: TIOTROPIUM BROMIDE 2.5 MCG (SPIRIVA) RESPIMAT INHALER IH SCH (15:44)
[2021-11-20] MEDS ORDERED: FUROSEMIDE 40 MG/4 ML INJECTABLE VIAL IVPUSH ONE (16:37)
[2021-11-20] MEDS: DEXMEDETOMIDINE PREMIX 400 MCG/100 ML BAG IVPB SCH (16:48)
[2021-11-20] MEDS: MEROPENEM 1 GM in DEXTROSE 5%-WATER 100 ML IVPB SCH (18:35)
[2021-11-20 20:19] LABS: HIV INTERPRETATION NEGATIVE (NEGATIVE)
[2021-11-20] MEDS: CHLORHEXIDINE GLUCONATE 4% CLEANSER FOR DECOLONIZATION TP SCH (21:43)
[2021-11-20] MEDS: methylPREDNISolone NA SUCC 125 MG/2 ML VIAL IVPB SCH (21:43)
[2021-11-21] MEDS: ALBUTEROL SO4 2.5/IPRATROPIUM 0.5 INH SOL 3 ML VIAL.NEB. NEB PRN ×4 (00:51→18:30)
[2021-11-21] MEDS: methylPREDNISolone NA SUCC 125 MG/2 ML VIAL IVPB SCH ×4 (02:14→21:15)
[2021-11-21] MEDS: MEROPENEM 1 GM in DEXTROSE 5%-WATER 100 ML IVPB SCH ×3 (02:14→17:55)
[2021-11-21 08:21] LABS: HEMATOCRIT 35.2 % (32.4-45.2); HEMOGLOBIN 11.1 GM/dL (10.7-15.3); MCH 27.5 pg (25.7-33.7); MCHC 31.4 g/dl (32.0-36.0); MEAN CELL VOLUME 87.4 fl (80-96); MEAN PLT VOLUME 8.4 fl (7.5-11.1); PLATELET COUNT 160 10^3/uL (134-434); RBC 4.03 M/mm3 (3.60-5.2); RDW 12.8 % (11.6-15.6); WHITE BLOOD COUNT 16.8 K/mm3 (4.0-10.0)
[2021-11-21 08:40] LABS: CALCIUM 7.7 mg/dL (8.5-10.1)
[2021-11-21 08:41] LABS: MAGNESIUM 2.6 mg/dL (1.8-2.4)
[2021-11-21 08:42] LABS: BLOOD UREA NITROGEN 26.3 mg/dL (7-18)
[2021-11-21 08:45] LABS: BILIRUBIN,TOTAL 0.6 mg/dL (0.2-1); CREATININE 0.5 mg/dL (0.55-1.3); PHOSPHOROUS 2.7 mg/dL (2.5-4.9); TOT PROT 5.5 g/dl (6.4-8.2)
[2021-11-21] MEDS: VANCOMYCIN/WATER FOR INJ (PEG) 1,000 MG/200 ML BAG IVPB SCH (09:08)
[2021-11-21] MEDS: AZITHROMYCIN IVPB 500 MG/250 ML BAG IVPB SCH (09:09)
[2021-11-21 10:01] LABS: ANISOCYTOSIS 0; HELMET CELLS 0; HOWELL-JOLLY BODIES 0; MACROCYTOSIS 0; OVALOCYTE 0; ROULEAU 0; SICKELED CELLS 0; TARGET CELLS 0; TEAR DROP CELLS 0; TOXIC GRANULATION 0
[2021-11-21] MEDS: MUPIROCIN 2% TOPICAL OINTMENT FOR DECOLONIZATION NS SCH ×2 (11:33→21:15)
[2021-11-21] MEDS: TIOTROPIUM BROMIDE 2.5 MCG (SPIRIVA) RESPIMAT INHALER IH SCH (11:34)
[2021-11-21] MEDS: WATER IVPB SCH ×2 (13:36→23:38)
[2021-11-21] MEDS: DEXTROSE 5% IVPB SCH ×2 (13:36→23:38)
[2021-11-21] MEDS: VORICONAZOLE IVPB SCH ×2 (13:36→23:38)
[2021-11-21] MEDS: DEXMEDETOMIDINE PREMIX 400 MCG/100 ML BAG IVPB SCH (17:39)
[2021-11-21] MEDS: CHLORHEXIDINE GLUCONATE 4% CLEANSER FOR DECOLONIZATION TP SCH (21:15)
[2021-11-22] MEDS: MEROPENEM 1 GM in DEXTROSE 5%-WATER 100 ML IVPB SCH ×3 (02:15→17:02)
[2021-11-22] MEDS: methylPREDNISolone NA SUCC 125 MG/2 ML VIAL IVPB SCH ×4 (02:46→21:07)
[2021-11-22 07:31] LABS: HEMATOCRIT 35.4 % (32.4-45.2); HEMOGLOBIN 11.3 GM/dL (10.7-15.3); MCH 27.6 pg (25.7-33.7); MCHC 31.9 g/dl (32.0-36.0); MEAN CELL VOLUME 86.6 fl (80-96); MEAN PLT VOLUME 8.6 fl (7.5-11.1); PLATELET COUNT 159 10^3/uL (134-434); RBC 4.08 M/mm3 (3.60-5.2); RDW 12.9 % (11.6-15.6); WHITE BLOOD COUNT 17.5 K/mm3 (4.0-10.0)
[2021-11-22 07:54] LABS: ALBUMIN 2.2 g/dl (3.4-5.0); BLOOD UREA NITROGEN 24.5 mg/dL (7-18); CALCIUM 7.9 mg/dL (8.5-10.1)
[2021-11-22 07:55] LABS: MAGNESIUM 2.8 mg/dL (1.8-2.4)
[2021-11-22 07:57] LABS: CREATININE 0.4 mg/dL (0.55-1.3)
[2021-11-22 07:59] LABS: BILIRUBIN,TOTAL 0.7 mg/dL (0.2-1); TOT PROT 5.8 g/dl (6.4-8.2)
[2021-11-22 09:05] LABS: ANISOCYTOSIS 0; HELMET CELLS 0; HOWELL-JOLLY BODIES 0; MACROCYTOSIS 0; OVALOCYTE 0; ROULEAU 0; SICKELED CELLS 0; TARGET CELLS 0; TEAR DROP CELLS 0; TOXIC GRANULATION 0
[2021-11-22] MEDS ORDERED: FUROSEMIDE 40 MG/4 ML INJECTABLE VIAL IVPUSH ONE (10:00)
[2021-11-22] MEDS ORDERED: ENOXAPARIN NA (PORCINE) 40 MG/0.4 ML DISP.SYRIN SQ SCH (10:00)
[2021-11-22] MEDS: VANCOMYCIN/WATER FOR INJ (PEG) 1,000 MG/200 ML BAG IVPB SCH (10:15)
[2021-11-22] MEDS: ENOXAPARIN NA (PORCINE) 40 MG/0.4 ML DISP.SYRIN SQ SCH (10:19)
[2021-11-22] MEDS: MUPIROCIN 2% TOPICAL OINTMENT FOR DECOLONIZATION NS SCH ×2 (10:19→21:07)
[2021-11-22] MEDS: METHIMAZOLE 5 MG TABLET PO SCH (10:21)
[2021-11-22] MEDS: PANTOPRAZOLE SODIUM 40 MG VIAL IVPUSH SCH (10:25)
[2021-11-22] MEDS ORDERED: POTASSIUM PHOSPHATE 30 MM in SODIUM CHLORIDE 250 ML IVPB ONE (11:00)
[2021-11-22] MEDS ORDERED: KCL 10 MEQ IVPB 10 MEQ/100 ML INFUS.BAG IVPB SCH ×2 (11:15)
[2021-11-22] MEDS: FLUTICASONE/UMECLIDIN/VILANTER(100-62.5-25 TRELEGY ELLIPTA) INAHLER IH SCH (11:45)
[2021-11-22] MEDS ORDERED: ROCURONIUM BROMIDE 50 MG/5 ML VIAL IVPUSH ONE ×2 (12:23→13:56)
[2021-11-22] MEDS ORDERED: MIDAZOLAM HCL 5 MG/1 ML Single Dose Vial IVPUSH ONE ×2 (12:24→13:00)
[2021-11-22] MEDS ORDERED: MIDAZOLAM IN 0.9 % SOD.CHLORID 1 MG/1 ML PLAST..BAG ONE (12:57)
[2021-11-22] MEDS: DEXTROSE 5% IVPB SCH (13:00)
[2021-11-22] MEDS: WATER IVPB SCH (13:00)
[2021-11-22] MEDS: VORICONAZOLE IVPB SCH (13:00)
[2021-11-22] MEDS: NOREPINEPHRINE BITARTRATE/D5W 8 MG/250 ML BAG IVPB SCH (13:20)
[2021-11-22] MEDS: MIDAZOLAM IN 0.9 % SOD.CHLORID 100 MG/100 ML PLAST..BAG IVPB SCH (13:20)
[2021-11-22] MEDS ORDERED: SODIUM CHLORIDE 500 ML IV STA (13:21)
[2021-11-22] MEDS ORDERED: NOREPINEPHRINE BITARTRATE 4 MG/4 ML ML IV ONE (13:23)
[2021-11-22] MEDS ORDERED: MINERAL OIL/PETROLATUM,WHITE 3.5 GM TUBE OU PRN (14:07)
[2021-11-22] MEDS ORDERED: PROPOFOL 200 MG/20 ML VIAL IVPUSH ONE (16:11)
[2021-11-22] MEDS: PROPOFOL 1,000,000 MCG/100 ML VIAL IVPB SCH (17:01)
[2021-11-22] MEDS: VECURONIUM BROMIDE 100 MG/100 ML BAG IVPB SCH (17:45)
[2021-11-22] MEDS: CHLORHEXIDINE GLUCONATE 4% CLEANSER FOR DECOLONIZATION TP SCH (21:07)
[2021-11-22] MEDS: VASOPRESSIN 40 UNITS/100 ML BAG IV SCH (21:18)
[2021-11-23] MEDS: VORICONAZOLE IVPB SCH ×2 (00:09→11:27)
[2021-11-23] MEDS: DEXTROSE 5% IVPB SCH ×2 (00:09→11:27)
[2021-11-23] MEDS: WATER IVPB SCH ×2 (00:09→11:27)
[2021-11-23] MEDS: MEROPENEM 1 GM in DEXTROSE 5%-WATER 100 ML IVPB SCH ×3 (03:00→17:08)
[2021-11-23] MEDS: methylPREDNISolone NA SUCC 125 MG/2 ML VIAL IVPB SCH ×4 (03:01→21:34)
[2021-11-23] MEDS: NOREPINEPHRINE BITARTRATE/D5W 8 MG/250 ML BAG IVPB SCH ×3 (06:41→17:07)
[2021-11-23 08:43] LABS: HEMATOCRIT 33.3 % (32.4-45.2); HEMOGLOBIN 10.2 GM/dL (10.7-15.3); MCH 27.6 pg (25.7-33.7); MCHC 30.6 g/dl (32.0-36.0); MEAN PLT VOLUME 8.9 fl (7.5-11.1); PLATELET COUNT 142 10^3/uL (134-434); RDW 13.8 % (11.6-15.6); WHITE BLOOD COUNT 15.2 K/mm3 (4.0-10.0)
[2021-11-23 08:51] LABS: CHLORIDE 98 mmol/L (98-107); SODIUM 142 mmol/L (136-145)
[2021-11-23] MEDS: VANCOMYCIN/WATER FOR INJ (PEG) 1,000 MG/200 ML BAG IVPB SCH (08:52)
[2021-11-23 08:54] LABS: ALBUMIN 1.9 g/dl (3.4-5.0); ANION GAP 5 MMOL/L (8-16); BLOOD UREA NITROGEN 43.7 mg/dL (7-18); CALCIUM 7.3 mg/dL (8.5-10.1); CO2 39 mmol/L (21-32); MAGNESIUM 2.7 mg/dL (1.8-2.4)
[2021-11-23 08:57] LABS: CREATININE 0.8 mg/dL (0.55-1.3); SGOT/AST 73 U/L (15-37); SGPT/ALT 82 U/L (13-61)
[2021-11-23 08:59] LABS: BILIRUBIN,TOTAL 0.4 mg/dL (0.2-1); TOT PROT 5.1 g/dl (6.4-8.2)
[2021-11-23 09:02] LABS: ALK PHOS 177 U/L (45-117); GLUCOSE,RANDOM 462 mg/dL (74-106)
[2021-11-23 09:24] LABS: ANISOCYTOSIS 0; HELMET CELLS 0; HOWELL-JOLLY BODIES 0; MACROCYTOSIS 0; OVALOCYTE 0; ROULEAU 0; SICKELED CELLS 0; TARGET CELLS 0; TEAR DROP CELLS 0; TOXIC GRANULATION 0
[2021-11-23] MEDS: ENOXAPARIN NA (PORCINE) 40 MG/0.4 ML DISP.SYRIN SQ SCH (09:52)
[2021-11-23] MEDS: MUPIROCIN 2% TOPICAL OINTMENT FOR DECOLONIZATION NS SCH ×2 (09:52→21:35)
[2021-11-23] MEDS: INSULIN SLIDING SCALE (NOVOLOG) 1 VIAL SQ SCH ×3 (09:54→21:38)
[2021-11-23] MEDS: PANTOPRAZOLE SODIUM 40 MG VIAL IVPUSH SCH (10:01)
[2021-11-23] MEDS: METHIMAZOLE 5 MG TABLET PO SCH (10:02)
[2021-11-23] MEDS: FLUTICASONE/UMECLIDIN/VILANTER(100-62.5-25 TRELEGY ELLIPTA) INAHLER IH SCH (10:59)
[2021-11-23 12:29] LABS: ARTERIAL BLD GAS O2 SATURATION 90.7 % (95-98); ARTERIAL BLOOD GAS BASE EXCESS 6.4 mmol/L (-2-2); ARTERIAL BLOOD GAS PO2 73.8 mmHg (80-100); ARTERIAL BLOOD GAS pH 7.218 (7.350-7.450)
[2021-11-23] MEDS: PROPOFOL 1,000,000 MCG/100 ML VIAL IVPB SCH (12:59)
[2021-11-23] MEDS: VASOPRESSIN 40 UNITS/100 ML BAG IV SCH ×2 (13:01→22:08)
[2021-11-23] MEDS: MIDAZOLAM IN 0.9 % SOD.CHLORID 100 MG/100 ML PLAST..BAG IVPB SCH (13:02)
[2021-11-23] MEDS: ALBUTEROL SO4 2.5/IPRATROPIUM 0.5 INH SOL 3 ML VIAL.NEB. NEB SCH ×2 (14:40→20:30)
[2021-11-23] MEDS: VECURONIUM BROMIDE 100 MG/100 ML BAG IVPB SCH (14:46)
[2021-11-23 15:08] LABS: THYROID STIM IMMUNOGLOBULIN <0.10 IU/L (0.00-0.55)
[2021-11-23] MEDS: CHLORHEXIDINE GLUCONATE 4% CLEANSER FOR DECOLONIZATION TP SCH (21:35)
[2021-11-23] MEDS: INSULIN (LEVEMIR) 100 UNITS/ML UNITS SQ SCH (21:38)
[2021-11-24] MEDS: MEROPENEM 1 GM in DEXTROSE 5%-WATER 100 ML IVPB SCH ×3 (01:30→17:50)
[2021-11-24] MEDS: methylPREDNISolone NA SUCC 125 MG/2 ML VIAL IVPB SCH ×4 (02:15→21:36)
[2021-11-24] MEDS: WATER IVPB SCH ×3 (03:33→23:54)
[2021-11-24] MEDS: VORICONAZOLE IVPB SCH ×3 (03:33→23:54)
[2021-11-24] MEDS: DEXTROSE 5% IVPB SCH ×3 (03:33→23:54)
[2021-11-24] MEDS: INSULIN SLIDING SCALE (NOVOLOG) 1 VIAL SQ SCH ×4 (04:15→21:37)
[2021-11-24] MEDS: MIDAZOLAM IN 0.9 % SOD.CHLORID 100 MG/100 ML PLAST..BAG IVPB SCH ×2 (04:54→13:56)
[2021-11-24] MEDS: VASOPRESSIN 40 UNITS/100 ML BAG IV SCH ×2 (04:55→21:36)
[2021-11-24] MEDS: NOREPINEPHRINE BITARTRATE/D5W 8 MG/250 ML BAG IVPB SCH ×2 (06:34→13:57)
[2021-11-24 06:42] LABS: ARTERIAL BLOOD GAS BASE EXCESS 9.9 mmol/L (-2-2); ARTERIAL BLOOD GAS PO2 57.1 mmHg (80-100); ARTERIAL BLOOD GAS pH 7.321 (7.350-7.450)
[2021-11-24 06:48] LABS: VENT MODE A/C; VENT RATE 14
[2021-11-24] MEDS: INSULIN (LEVEMIR) 100 UNITS/ML UNITS SQ SCH ×2 (07:07→21:37)
[2021-11-24] MEDS: VECURONIUM BROMIDE 100 MG/100 ML BAG IVPB SCH ×2 (07:34→13:57)
[2021-11-24] MEDS: ALBUTEROL SO4 2.5/IPRATROPIUM 0.5 INH SOL 3 ML VIAL.NEB. NEB SCH ×3 (07:45→20:20)
[2021-11-24 08:22] LABS: HEMATOCRIT 34.1 % (32.4-45.2); HEMOGLOBIN 10.7 GM/dL (10.7-15.3); MCH 27.8 pg (25.7-33.7); MCHC 31.3 g/dl (32.0-36.0); MEAN CELL VOLUME 88.8 fl (80-96); MEAN PLT VOLUME 9.2 fl (7.5-11.1); PLATELET COUNT 118 10^3/uL (134-434); RBC 3.84 M/mm3 (3.60-5.2); RDW 13.5 % (11.6-15.6); WHITE BLOOD COUNT 15.1 K/mm3 (4.0-10.0)
[2021-11-24 08:31] LABS: CALCIUM 7.3 mg/dL (8.5-10.1)
[2021-11-24 08:33] LABS: ALBUMIN 1.8 g/dl (3.4-5.0); MAGNESIUM 2.7 mg/dL (1.8-2.4)
[2021-11-24 08:35] LABS: CREATININE 0.7 mg/dL (0.55-1.3); PHOSPHOROUS 2.9 mg/dL (2.5-4.9)
[2021-11-24 08:36] LABS: BILIRUBIN,TOTAL 0.2 mg/dL (0.2-1); TOT PROT 4.8 g/dl (6.4-8.2)
[2021-11-24] MEDS: VANCOMYCIN/WATER FOR INJ (PEG) 1,000 MG/200 ML BAG IVPB SCH (08:52)
[2021-11-24] MEDS: PANTOPRAZOLE SODIUM 40 MG VIAL IVPUSH SCH (09:46)
[2021-11-24] MEDS: ENOXAPARIN NA (PORCINE) 40 MG/0.4 ML DISP.SYRIN SQ SCH (09:46)
[2021-11-24] MEDS: MUPIROCIN 2% TOPICAL OINTMENT FOR DECOLONIZATION NS SCH (09:46)
[2021-11-24] MEDS: FLUTICASONE/UMECLIDIN/VILANTER(100-62.5-25 TRELEGY ELLIPTA) INAHLER IH SCH (09:47)
[2021-11-24] MEDS: METHIMAZOLE 5 MG TABLET PO SCH (09:51)
[2021-11-24 10:03] LABS: ANISOCYTOSIS 1+; MACROCYTOSIS 0; OVALOCYTE 1+
[2021-11-24] MEDS: PROPOFOL 1,000,000 MCG/100 ML VIAL IVPB SCH (13:09)
[2021-11-24] MEDS: CHLORHEXIDINE GLUCONATE 4% CLEANSER FOR DECOLONIZATION TP SCH (21:37)
[2021-11-24] MEDS ORDERED: MILRINONE 20MG/100ML IVPB - 20,000 MCG/100 ML ML IVPB SCH (22:30)
[2021-11-24] MEDS: FENTANYL NS IVPB 500 MCG/100 ML BAG IVPB SCH (22:45)
[2021-11-25] MEDS: MEROPENEM 1 GM in DEXTROSE 5%-WATER 100 ML IVPB SCH ×3 (01:20→17:07)
[2021-11-25] MEDS: methylPREDNISolone NA SUCC 125 MG/2 ML VIAL IVPB SCH ×4 (02:18→21:24)
[2021-11-25] MEDS: INSULIN SLIDING SCALE (NOVOLOG) 1 VIAL SQ SCH ×4 (02:18→21:25)
[2021-11-25] MEDS: INSULIN (LEVEMIR) 100 UNITS/ML UNITS SQ SCH ×2 (06:00→21:25)
[2021-11-25 06:34] LABS: ARTERIAL BLOOD GAS BASE EXCESS 5.2 mmol/L (-2-2); ARTERIAL BLOOD GAS PO2 92.2 mmHg (80-100)
[2021-11-25 06:38] LABS: VENT MODE A/C; VENT RATE 18
[2021-11-25 07:47] LABS: HEMATOCRIT 32.5 % (32.4-45.2); HEMOGLOBIN 10.4 GM/dL (10.7-15.3); MCH 28.4 pg (25.7-33.7); MCHC 31.8 g/dl (32.0-36.0); MEAN CELL VOLUME 89.1 fl (80-96); MEAN PLT VOLUME 9.5 fl (7.5-11.1); PLATELET COUNT 83 10^3/uL (134-434); RBC 3.65 M/mm3 (3.60-5.2); RDW 13.4 % (11.6-15.6); WHITE BLOOD COUNT 15.7 K/mm3 (4.0-10.0)
[2021-11-25 08:12] LABS: ALBUMIN 1.6 g/dl (3.4-5.0); BLOOD UREA NITROGEN 78.8 mg/dL (7-18); CALCIUM 7.5 mg/dL (8.5-10.1)
[2021-11-25 08:16] LABS: CREATININE 0.7 mg/dL (0.55-1.3); PHOSPHOROUS 2.3 mg/dL (2.5-4.9)
[2021-11-25 08:17] LABS: BILIRUBIN,TOTAL 0.2 mg/dL (0.2-1); TOT PROT 4.4 g/dl (6.4-8.2)
[2021-11-25] MEDS: ALBUTEROL SO4 2.5/IPRATROPIUM 0.5 INH SOL 3 ML VIAL.NEB. NEB SCH ×3 (08:38→20:05)
[2021-11-25] MEDS: VANCOMYCIN/WATER FOR INJ (PEG) 1,000 MG/200 ML BAG IVPB SCH (08:45)
[2021-11-25 08:49] LABS: ANISOCYTOSIS 1+; MACROCYTOSIS 0; PLATELET ESTIMATE DECREASED
[2021-11-25] MEDS: MIDAZOLAM IN 0.9 % SOD.CHLORID 100 MG/100 ML PLAST..BAG IVPB SCH ×2 (09:13→13:14)
[2021-11-25] MEDS: ENOXAPARIN NA (PORCINE) 40 MG/0.4 ML DISP.SYRIN SQ SCH (10:50)
[2021-11-25] MEDS: PANTOPRAZOLE SODIUM 40 MG VIAL IVPUSH SCH (10:50)
[2021-11-25] MEDS: DEXTROSE 5% IVPB SCH ×2 (11:20→23:14)
[2021-11-25] MEDS: VORICONAZOLE IVPB SCH ×2 (11:20→23:14)
[2021-11-25] MEDS: WATER IVPB SCH ×2 (11:20→23:14)
[2021-11-25] MEDS: MILRINONE 20MG/100ML IVPB - 20,000 MCG/100 ML ML IVPB SCH (11:21)
[2021-11-25] MEDS: FLUTICASONE/UMECLIDIN/VILANTER(100-62.5-25 TRELEGY ELLIPTA) INAHLER IH SCH (11:21)
[2021-11-25 12:08] LABS: ARTERIAL BLD GAS O2 SATURATION 98.1 % (95-98); ARTERIAL BLOOD GAS BASE EXCESS 9.8 mmol/L (-2-2); ARTERIAL BLOOD GAS PO2 128.4 mmHg (80-100); ARTERIAL BLOOD GAS pH 7.307 (7.350-7.450)
[2021-11-25 12:10] LABS: VENT MODE A/C; VENT RATE 22
[2021-11-25] MEDS: PROPOFOL 1,000,000 MCG/100 ML VIAL IVPB SCH (13:13)
[2021-11-25] MEDS: VASOPRESSIN 40 UNITS/100 ML BAG IV SCH ×2 (13:14→21:23)
[2021-11-25] MEDS: METHIMAZOLE 5 MG TABLET PO SCH (13:15)
[2021-11-25] MEDS: NOREPINEPHRINE BITARTRATE/D5W 8 MG/250 ML BAG IVPB SCH (17:09)
[2021-11-25] MEDS: VECURONIUM BROMIDE 100 MG/100 ML BAG IVPB SCH (17:13)
[2021-11-25] MEDS: FENTANYL NS IVPB 500 MCG/100 ML BAG IVPB SCH ×2 (17:33→23:01)
[2021-11-25 20:48] LABS: ARTERIAL BLD GAS O2 SATURATION 90.1 % (95-98); ARTERIAL BLOOD GAS BASE EXCESS 7.1 mmol/L (-2-2); ARTERIAL BLOOD GAS PO2 66.6 mmHg (80-100)
[2021-11-25 20:52] LABS: VENT MODE V-A/C; VENT RATE 22
[2021-11-25] MEDS: CHLORHEXIDINE GLUCONATE 4% CLEANSER FOR DECOLONIZATION TP SCH (21:24)
[2021-11-26] MEDS: MEROPENEM 1 GM in DEXTROSE 5%-WATER 100 ML IVPB SCH ×3 (02:40→18:17)
[2021-11-26] MEDS: methylPREDNISolone NA SUCC 125 MG/2 ML VIAL IVPB SCH ×2 (02:40→09:27)
[2021-11-26] MEDS: INSULIN SLIDING SCALE (NOVOLOG) 1 VIAL SQ SCH ×2 (02:44→23:34)
[2021-11-26] MEDS: INSULIN (LEVEMIR) 100 UNITS/ML UNITS SQ SCH (06:09)
[2021-11-26 06:25] LABS: ARTERIAL BLD GAS O2 SATURATION 81.4 % (95-98); ARTERIAL BLOOD GAS BASE EXCESS 3.4 mmol/L (-2-2); ARTERIAL BLOOD GAS PO2 58.9 mmHg (80-100)
[2021-11-26 06:44] LABS: VENT MODE A/C; VENT RATE 25
[2021-11-26 06:56] LABS: ARTERIAL BLOOD GAS pH 7.172 (7.350-7.450)
[2021-11-26 08:01] LABS: HEMATOCRIT 33.6 % (32.4-45.2); HEMOGLOBIN 10.3 GM/dL (10.7-15.3); MCH 27.6 pg (25.7-33.7); MCHC 30.7 g/dl (32.0-36.0); MEAN CELL VOLUME 89.9 fl (80-96); MEAN PLT VOLUME 10.1 fl (7.5-11.1); PLATELET COUNT 73 10^3/uL (134-434); RBC 3.74 M/mm3 (3.60-5.2); RDW 13.4 % (11.6-15.6); WHITE BLOOD COUNT 17.2 K/mm3 (4.0-10.0)
[2021-11-26] MEDS: ALBUTEROL SO4 2.5/IPRATROPIUM 0.5 INH SOL 3 ML VIAL.NEB. NEB SCH ×3 (08:16→20:00)
[2021-11-26] MEDS ORDERED: INSULIN (LEVEMIR) 100 UNITS/ML UNITS SQ SCH (08:16)
[2021-11-26 08:23] LABS: ALBUMIN 1.7 g/dl (3.4-5.0); BLOOD UREA NITROGEN 98.2 mg/dL (7-18); CALCIUM 7.5 mg/dL (8.5-10.1); MAGNESIUM 3.3 mg/dL (1.8-2.4)
[2021-11-26] MEDS ORDERED: SODIUM CHLORIDE 250 ML IV STA (08:25)
[2021-11-26 08:26] LABS: CREATININE 0.9 mg/dL (0.55-1.3); PHOSPHOROUS 2.8 mg/dL (2.5-4.9)
[2021-11-26 08:27] LABS: BILIRUBIN,TOTAL 0.2 mg/dL (0.2-1); TOT PROT 4.7 g/dl (6.4-8.2)
[2021-11-26] MEDS ORDERED: DEXTROSE 50%-WATER 25 GM/50 ML DISP.SYRIN IVPUSH PRN (08:28)
[2021-11-26] MEDS ORDERED: INSULIN REGULAR HUMAN 100 UNITS/ML *VIAL* (FOR IVP) IVPUSH ONE (08:28)
[2021-11-26] MEDS ORDERED: INSULIN REGULAR 100 UNITS in SODIUM CHLORIDE 99 ML IVPB SCH (08:30)
[2021-11-26] MEDS: MILRINONE 20MG/100ML IVPB - 20,000 MCG/100 ML ML IVPB SCH ×3 (08:32→11:36)
[2021-11-26] MEDS: VANCOMYCIN/WATER FOR INJ (PEG) 1,000 MG/200 ML BAG IVPB SCH (08:50)
[2021-11-26] MEDS: PANTOPRAZOLE SODIUM 40 MG VIAL IVPUSH SCH (09:24)
[2021-11-26 09:26] LABS: ANISOCYTOSIS 0; HELMET CELLS 0; HOWELL-JOLLY BODIES 0; MACROCYTOSIS 0; OVALOCYTE 0; ROULEAU 0; SICKELED CELLS 0; TARGET CELLS 0; TEAR DROP CELLS 0; TOXIC GRANULATION 0
[2021-11-26] MEDS: ENOXAPARIN NA (PORCINE) 40 MG/0.4 ML DISP.SYRIN SQ SCH (09:27)
[2021-11-26] MEDS: FLUTICASONE/UMECLIDIN/VILANTER(100-62.5-25 TRELEGY ELLIPTA) INAHLER IH SCH (09:27)
[2021-11-26] MEDS: FENTANYL NS IVPB 500 MCG/100 ML BAG IVPB SCH ×2 (09:29→22:53)
[2021-11-26] MEDS: NOREPINEPHRINE BITARTRATE/D5W 8 MG/250 ML BAG IVPB SCH ×2 (09:36→14:51)
[2021-11-26] MEDS: METHIMAZOLE 5 MG TABLET NGT SCH (10:57)
[2021-11-26] MEDS: MIDAZOLAM IN 0.9 % SOD.CHLORID 100 MG/100 ML PLAST..BAG IVPB SCH ×2 (11:36→13:04)
[2021-11-26] MEDS: DEXTROSE 5% IVPB SCH ×2 (12:50→23:15)
[2021-11-26] MEDS: VORICONAZOLE IVPB SCH ×2 (12:50→23:15)
[2021-11-26] MEDS: PROPOFOL 1,000,000 MCG/100 ML VIAL IVPB SCH (12:50)
[2021-11-26] MEDS: WATER IVPB SCH ×2 (12:50→23:15)
[2021-11-26 13:12] LABS: ARTERIAL BLD GAS O2 SATURATION 95.2 % (95-98); ARTERIAL BLOOD GAS BASE EXCESS 2.6 mmol/L (-2-2); ARTERIAL BLOOD GAS PO2 97.7 mmHg (80-100)
[2021-11-26 13:13] LABS: ALLENS TEST POSITIVE
[2021-11-26 13:14] LABS: VENT MODE A/C; VENT RATE 30
[2021-11-26 13:16] LABS: ARTERIAL BLOOD GAS pH 7.174 (7.350-7.450)
[2021-11-26] MEDS: SODIUM BICARBONATE 8.4% 50 MEQ/50 ML DISP.SYRIN IVPUSH SCH ×2 (14:30→18:30)
[2021-11-26] MEDS: VECURONIUM BROMIDE 100 MG/100 ML BAG IVPB SCH (14:51)
[2021-11-26] MEDS: VASOPRESSIN 40 UNITS/100 ML BAG IV SCH (21:42)
[2021-11-26] MEDS: CHLORHEXIDINE GLUCONATE 4% CLEANSER FOR DECOLONIZATION TP SCH (21:43)
[2021-11-27] MEDS: SODIUM BICARBONATE 8.4% 50 MEQ/50 ML DISP.SYRIN IVPUSH SCH ×4 (01:45→19:18)
[2021-11-27] MEDS: MEROPENEM 1 GM in DEXTROSE 5%-WATER 100 ML IVPB SCH ×3 (01:45→17:37)
[2021-11-27] MEDS: INSULIN SLIDING SCALE (NOVOLOG) 1 VIAL SQ SCH ×6 (02:00→23:00)
[2021-11-27 06:39] LABS: ARTERIAL BLD GAS O2 SATURATION 90.9 % (95-98); ARTERIAL BLOOD GAS BASE EXCESS 9.8 mmol/L (-2-2); ARTERIAL BLOOD GAS PO2 66.9 mmHg (80-100); ARTERIAL BLOOD GAS pH 7.321 (7.350-7.450)
[2021-11-27 06:45] LABS: ALLENS TEST POSITIVE; VENT MODE A/C; VENT RATE 30
[2021-11-27 07:55] LABS: HEMATOCRIT 28.5 % (32.4-45.2); MCH 27.6 pg (25.7-33.7); MCHC 31.5 g/dl (32.0-36.0); MEAN CELL VOLUME 87.8 fl (80-96); MEAN PLT VOLUME 10.3 fl (7.5-11.1); PLATELET COUNT 47 10^3/uL (134-434); RBC 3.25 M/mm3 (3.60-5.2); RDW 13.2 % (11.6-15.6); WHITE BLOOD COUNT 17.3 K/mm3 (4.0-10.0)
[2021-11-27 08:07] LABS: CHLORIDE 95 mmol/L (98-107); SODIUM 138 mmol/L (136-145)
[2021-11-27 08:09] LABS: ALBUMIN 1.6 g/dl (3.4-5.0); CALCIUM 7.3 mg/dL (8.5-10.1); GLUCOSE,RANDOM 200 mg/dL (74-106)
[2021-11-27 08:10] LABS: ANION GAP 3 MMOL/L (8-16); CO2 39 mmol/L (21-32); MAGNESIUM 3.2 mg/dL (1.8-2.4)
[2021-11-27 08:12] LABS: SGPT/ALT 138 U/L (13-61)
[2021-11-27 08:13] LABS: CREATININE 1.1 mg/dL (0.55-1.3); PHOSPHOROUS 2.6 mg/dL (2.5-4.9); SGOT/AST 154 U/L (15-37)
[2021-11-27 08:14] LABS: BILIRUBIN,TOTAL 0.6 mg/dL (0.2-1); TOT PROT 4.2 g/dl (6.4-8.2)
[2021-11-27 08:15] LABS: ALK PHOS 181 U/L (45-117)
[2021-11-27 08:16] LABS: BLOOD UREA NITROGEN 114.5 mg/dL (7-18)
[2021-11-27] MEDS: ALBUTEROL SO4 2.5/IPRATROPIUM 0.5 INH SOL 3 ML VIAL.NEB. NEB SCH ×3 (08:35→20:05)
[2021-11-27] MEDS: VANCOMYCIN/WATER FOR INJ (PEG) 1,000 MG/200 ML BAG IVPB SCH (08:55)
[2021-11-27] MEDS ORDERED: INSULIN SLIDING SCALE (NOVOLOG) 1 VIAL SQ ONE (09:10)
[2021-11-27] MEDS ORDERED: CALCIUM GLUCONATE 10% - 1,000 MG/10 ML VIAL IVPUSH ONE (09:11)
[2021-11-27] MEDS ORDERED: DEXTROSE 50%-WATER - 25 GM/50 ML VIAL IVPUSH ONE (09:11)
[2021-11-27 09:43] LABS: ANISOCYTOSIS 0; MACROCYTOSIS 0; OVALOCYTE 1+
[2021-11-27] MEDS ORDERED: methylPREDNISolone NA SUCC 40 MG/1 ML VIAL IVPUSH SCH (10:00)
[2021-11-27] MEDS: SODIUM ZIRCONIUM CYCLOSILICATE (LOKELMA) 5 GM PACKET GT SCH (10:19)
[2021-11-27] MEDS: PANTOPRAZOLE SODIUM 40 MG VIAL IVPUSH SCH (10:22)
[2021-11-27] MEDS: methylPREDNISolone NA SUCC 125 MG/2 ML VIAL IVPUSH SCH (10:22)
[2021-11-27] MEDS: ENOXAPARIN NA (PORCINE) 40 MG/0.4 ML DISP.SYRIN SQ SCH (10:22)
[2021-11-27] MEDS: FLUTICASONE/UMECLIDIN/VILANTER(100-62.5-25 TRELEGY ELLIPTA) INAHLER IH SCH (10:23)
[2021-11-27] MEDS: FENTANYL NS IVPB 500 MCG/100 ML BAG IVPB SCH (10:25)
[2021-11-27] MEDS ORDERED: INSULIN REGULAR HUMAN 100 UNITS/ML *VIAL IVPUSH ONE (11:15)
[2021-11-27] MEDS: METHIMAZOLE 5 MG TABLET NGT SCH (12:42)
[2021-11-27] MEDS: MIDAZOLAM IN 0.9 % SOD.CHLORID 100 MG/100 ML PLAST..BAG IVPB SCH (13:06)
[2021-11-27] MEDS: NOREPINEPHRINE BITARTRATE/D5W 8 MG/250 ML BAG IVPB SCH (13:50)
[2021-11-27] MEDS: VECURONIUM BROMIDE 100 MG/100 ML BAG IVPB SCH (14:00)
[2021-11-27 14:20] VITALS: BMI 22.9
[2021-11-27] MEDS ORDERED: FUROSEMIDE 40 MG/4 ML INJECTABLE VIAL IVPUSH ONE (14:30)
[2021-11-27] MEDS: DEXTROSE 5% IVPB SCH (15:35)
[2021-11-27] MEDS: VORICONAZOLE IVPB SCH (15:35)
[2021-11-27] MEDS: WATER IVPB SCH (15:35)
[2021-11-27] MEDS: CHLORHEXIDINE GLUCONATE 4% CLEANSER FOR DECOLONIZATION TP SCH (21:15)
[2021-11-27 22:03] LABS: CHLORIDE 93 mmol/L (98-107); SODIUM 142 mmol/L (136-145)
[2021-11-27 22:05] LABS: CALCIUM 7.7 mg/dL (8.5-10.1)
[2021-11-27 22:06] LABS: GLUCOSE,RANDOM 207 mg/dL (74-106)
[2021-11-27] MEDS: VASOPRESSIN 40 UNITS/100 ML BAG IV SCH (22:07)
[2021-11-27 22:09] LABS: CREATININE 0.9 mg/dL (0.55-1.3)
[2021-11-27 22:56] LABS: ANION GAP 4 MMOL/L (8-16); BLOOD UREA NITROGEN 105.4 mg/dL (7-18); CO2 > 45 mmol/L (21-32)
[2021-11-28] MEDS: MIDAZOLAM IN 0.9 % SOD.CHLORID 100 MG/100 ML PLAST..BAG IVPB SCH ×2 (00:09→17:00)
[2021-11-28] MEDS: VORICONAZOLE IVPB SCH (00:09)
[2021-11-28] MEDS: DEXTROSE 5% IVPB SCH (00:09)
[2021-11-28] MEDS: WATER IVPB SCH (00:09)
[2021-11-28] MEDS: SODIUM BICARBONATE 8.4% 50 MEQ/50 ML DISP.SYRIN IVPUSH SCH ×2 (00:31→07:22)
[2021-11-28] MEDS: MEROPENEM 1 GM in DEXTROSE 5%-WATER 100 ML IVPB SCH ×3 (00:59→18:52)
[2021-11-28] MEDS: INSULIN SLIDING SCALE (NOVOLOG) 1 VIAL SQ SCH ×6 (03:00→22:42)
[2021-11-28] MEDS: FENTANYL NS IVPB 500 MCG/100 ML BAG IVPB SCH ×2 (06:18)
[2021-11-28 06:33] LABS: ARTERIAL BLD GAS O2 SATURATION 97.1 % (95-98); ARTERIAL BLOOD GAS BASE EXCESS 15.5 mmol/L (-2-2); ARTERIAL BLOOD GAS PO2 93.6 mmHg (80-100); ARTERIAL BLOOD GAS pH 7.435 (7.350-7.450)
[2021-11-28 06:37] LABS: VENT MODE V-A/C; VENT RATE 30
[2021-11-28] MEDS ORDERED: SODIUM BICARBONATE 8.4% 50 MEQ/50 ML VIAL ONE (07:17)
[2021-11-28 07:30] LABS: CHLORIDE 92 mmol/L (98-107); SODIUM 142 mmol/L (136-145)
[2021-11-28 07:33] LABS: CALCIUM 7.3 mg/dL (8.5-10.1)
[2021-11-28 07:34] LABS: ALBUMIN 1.4 g/dl (3.4-5.0); BLOOD UREA NITROGEN 103.6 mg/dL (7-18); GLUCOSE,RANDOM 195 mg/dL (74-106); MAGNESIUM 3.3 mg/dL (1.8-2.4)
[2021-11-28 07:36] LABS: CREATININE 0.8 mg/dL (0.55-1.3)
[2021-11-28 07:37] LABS: PHOSPHOROUS 2.7 mg/dL (2.5-4.9); SGOT/AST 293 U/L (15-37); SGPT/ALT 305 U/L (13-61)
[2021-11-28 07:38] LABS: ALK PHOS 203 U/L (45-117); BILIRUBIN,TOTAL 0.9 mg/dL (0.2-1); LDH 600 U/L (84-246); TOT PROT 3.8 g/dl (6.4-8.2)
[2021-11-28] MEDS: ALBUTEROL SO4 2.5/IPRATROPIUM 0.5 INH SOL 3 ML VIAL.NEB. NEB SCH ×3 (07:57→20:22)
[2021-11-28 08:10] LABS: ANION GAP 5 MMOL/L (8-16); CO2 > 45 mmol/L (21-32)
[2021-11-28 08:21] LABS: HEMATOCRIT 26.6 % (32.4-45.2); HEMOGLOBIN 8.4 GM/dL (10.7-15.3); MCH 27.5 pg (25.7-33.7); MCHC 31.6 g/dl (32.0-36.0); MEAN CELL VOLUME 87.1 fl (80-96); MEAN PLT VOLUME 10.8 fl (7.5-11.1); PLATELET COUNT 56 10^3/uL (134-434); RBC 3.05 M/mm3 (3.60-5.2); RDW 13.5 % (11.6-15.6)
[2021-11-28 08:54] LABS: INR 0.9 (0.83-1.09); PROTHROMBIN TIME (PATIENT) 10.3 SEC (9.7-13.0)
[2021-11-28] MEDS: methylPREDNISolone NA SUCC 125 MG/2 ML VIAL IVPUSH SCH (09:09)
[2021-11-28] MEDS: PANTOPRAZOLE SODIUM 40 MG VIAL IVPUSH SCH (09:18)
[2021-11-28] MEDS: FLUTICASONE/UMECLIDIN/VILANTER(100-62.5-25 TRELEGY ELLIPTA) INAHLER IH SCH (09:19)
[2021-11-28] MEDS: ENOXAPARIN NA (PORCINE) 40 MG/0.4 ML DISP.SYRIN SQ SCH (09:25)
[2021-11-28] MEDS: SODIUM ZIRCONIUM CYCLOSILICATE (LOKELMA) 5 GM PACKET GT SCH (09:26)
[2021-11-28 09:58] LABS: ANISOCYTOSIS 0; MACROCYTOSIS 0
[2021-11-28] MEDS: METHIMAZOLE 5 MG TABLET NGT SCH (11:00)
[2021-11-28] MEDS ORDERED: FUROSEMIDE 40 MG/4 ML INJECTABLE VIAL IVPUSH ONE (11:59)
[2021-11-28 12:01] LABS: RETICULOCYTES 0.89 % (0.5-1.5)
[2021-11-28 12:35] LABS: IRON SERUM 77 ug/dL (50-175); TOTAL IRON BINDING CAPACITY 228 ug/dL (250-450)
[2021-11-28 19:04] LABS: INR 1.2 (0.83-1.09); PROTHROMBIN TIME (PATIENT) 13.8 SEC (9.7-13.0)
[2021-11-28] MEDS: NOREPINEPHRINE BITARTRATE/D5W 8 MG/250 ML BAG IVPB SCH (22:36)
[2021-11-28] MEDS: VASOPRESSIN 40 UNITS/100 ML BAG IV SCH (22:36)
[2021-11-28] MEDS: VECURONIUM BROMIDE 100 MG/100 ML BAG IVPB SCH (22:36)
[2021-11-28] MEDS: CHLORHEXIDINE GLUCONATE 4% CLEANSER FOR DECOLONIZATION TP SCH (22:37)
[2021-11-29] MEDS: MEROPENEM 1 GM in DEXTROSE 5%-WATER 100 ML IVPB SCH ×3 (01:06→18:00)
[2021-11-29] MEDS: INSULIN SLIDING SCALE (NOVOLOG) 1 VIAL SQ SCH ×6 (03:21→22:29)
[2021-11-29] MEDS: FENTANYL NS IVPB 500 MCG/100 ML BAG IVPB SCH ×3 (03:32→22:23)
[2021-11-29 06:43] LABS: ARTERIAL BLD GAS O2 SATURATION 93.1 % (95-98); ARTERIAL BLOOD GAS BASE EXCESS 16.3 mmol/L (-2-2); ARTERIAL BLOOD GAS PO2 79.6 mmHg (80-100); ARTERIAL BLOOD GAS pH 7.277 (7.350-7.450)
[2021-11-29 07:16] LABS: VENT MODE A/C; VENT RATE 25
[2021-11-29 07:21] LABS: HEMATOCRIT 27.5 % (32.4-45.2); HEMOGLOBIN 8.5 GM/dL (10.7-15.3); MCH 27.8 pg (25.7-33.7); MEAN CELL VOLUME 89.8 fl (80-96); MEAN PLT VOLUME 11.2 fl (7.5-11.1); PLATELET COUNT 85 10^3/uL (134-434); RBC 3.06 M/mm3 (3.60-5.2)
[2021-11-29 07:54] LABS: CHLORIDE 93 mmol/L (98-107); SODIUM 143 mmol/L (136-145)
[2021-11-29 07:55] LABS: CALCIUM 8.1 mg/dL (8.5-10.1)
[2021-11-29 07:57] LABS: ALBUMIN 1.6 g/dl (3.4-5.0); GLUCOSE,RANDOM 173 mg/dL (74-106); MAGNESIUM 3.4 mg/dL (1.8-2.4)
[2021-11-29 08:00] LABS: PHOSPHOROUS 4.8 mg/dL (2.5-4.9); SGOT/AST 513 U/L (15-37); SGPT/ALT 579 U/L (13-61)
[2021-11-29 08:01] LABS: BILIRUBIN,TOTAL 1.6 mg/dL (0.2-1); TOT PROT 4.1 g/dl (6.4-8.2)
[2021-11-29 08:02] LABS: ALK PHOS 294 U/L (45-117); ANION GAP 5 MMOL/L (8-16); BLOOD UREA NITROGEN 119.9 mg/dL (7-18); CO2 > 45 mmol/L (21-32)
[2021-11-29] MEDS ORDERED: INSULIN REGULAR HUMAN 100 UNITS/ML *VIAL IVPUSH ONE (08:10)
[2021-11-29] MEDS ORDERED: CALCIUM GLUCONATE 10% - 1,000 MG/10 ML VIAL IVPUSH ONE (08:10)
[2021-11-29] MEDS ORDERED: DEXTROSE 50%-WATER 25 GM/50 ML DISP.SYRIN IVPUSH ONE (08:11)
[2021-11-29] MEDS: ALBUTEROL SO4 2.5/IPRATROPIUM 0.5 INH SOL 3 ML VIAL.NEB. NEB SCH ×3 (08:18→20:09)
[2021-11-29] MEDS: methylPREDNISolone NA SUCC 125 MG/2 ML VIAL IVPUSH SCH (09:59)
[2021-11-29] MEDS: PANTOPRAZOLE SODIUM 40 MG VIAL IVPUSH SCH ×2 (10:04→22:23)
[2021-11-29] MEDS: ENOXAPARIN NA (PORCINE) 40 MG/0.4 ML DISP.SYRIN SQ SCH (10:06)
[2021-11-29] MEDS: SODIUM ZIRCONIUM CYCLOSILICATE (LOKELMA) 5 GM PACKET PO SCH (10:08)
[2021-11-29 10:17] LABS: ANISOCYTOSIS 0; HELMET CELLS 0; HOWELL-JOLLY BODIES 0; MACROCYTOSIS 0; OVALOCYTE 0; ROULEAU 0; SICKELED CELLS 0; TARGET CELLS 0; TEAR DROP CELLS 0; TOXIC GRANULATION 0
[2021-11-29] MEDS ORDERED: FUROSEMIDE 40 MG/4 ML INJECTABLE VIAL IVPUSH ONE (11:00)
[2021-11-29] MEDS: FLUTICASONE/UMECLIDIN/VILANTER(100-62.5-25 TRELEGY ELLIPTA) INAHLER IH SCH (13:01)
[2021-11-29] MEDS: MIDAZOLAM IN 0.9 % SOD.CHLORID 100 MG/100 ML PLAST..BAG IVPB SCH (16:57)
[2021-11-29] MEDS: NOREPINEPHRINE BITARTRATE/D5W 8 MG/250 ML BAG IVPB SCH (17:19)
[2021-11-29] MEDS: VECURONIUM BROMIDE 100 MG/100 ML BAG IVPB SCH (17:20)
[2021-11-29 17:59] LABS: CHLORIDE 94 mmol/L (98-107); SODIUM 144 mmol/L (136-145)
[2021-11-29 18:01] LABS: CALCIUM 8.1 mg/dL (8.5-10.1)
[2021-11-29 18:02] LABS: GLUCOSE,RANDOM 219 mg/dL (74-106)
[2021-11-29] MEDS ORDERED: SODIUM ZIRCONIUM CYCLOSILICATE (LOKELMA) 5 GM PACKET PO ONE (18:03)
[2021-11-29 18:07] LABS: ANION GAP 5 MMOL/L (8-16); BLOOD UREA NITROGEN 123.1 mg/dL (7-18); CO2 > 45 mmol/L (21-32)
[2021-11-29] MEDS: VASOPRESSIN 40 UNITS/100 ML BAG IV SCH (21:30)
[2021-11-29] MEDS: CHLORHEXIDINE GLUCONATE 4% CLEANSER FOR DECOLONIZATION TP SCH (22:23)
[2021-11-30] MEDS: MEROPENEM 1 GM in DEXTROSE 5%-WATER 100 ML IVPB SCH ×3 (02:00→17:34)
[2021-11-30] MEDS: INSULIN SLIDING SCALE (NOVOLOG) 1 VIAL SQ SCH ×6 (04:44→23:59)
[2021-11-30 06:32] LABS: ARTERIAL BLD GAS O2 SATURATION 95.7 % (95-98); ARTERIAL BLOOD GAS pH 7.438 (7.350-7.450)
[2021-11-30 06:41] LABS: ALLENS TEST POSITIVE
[2021-11-30 06:42] LABS: VENT MODE A/C; VENT RATE 30
[2021-11-30 07:32] LABS: HEMATOCRIT 27.5 % (32.4-45.2); HEMOGLOBIN 8.7 GM/dL (10.7-15.3); MCH 27.9 pg (25.7-33.7); MCHC 31.7 g/dl (32.0-36.0); MEAN PLT VOLUME 10.8 fl (7.5-11.1); PLATELET COUNT 99 10^3/uL (134-434); RBC 3.13 M/mm3 (3.60-5.2); RDW 13.4 % (11.6-15.6); WHITE BLOOD COUNT 25.2 K/mm3 (4.0-10.0)
[2021-11-30 07:34] LABS: INR 0.84 (0.83-1.09); PROTHROMBIN TIME (PATIENT) 9.7 SEC (9.7-13.0)
[2021-11-30 07:46] LABS: CHLORIDE 94 mmol/L (98-107); SODIUM 143 mmol/L (136-145)
[2021-11-30 07:49] LABS: CALCIUM 8.1 mg/dL (8.5-10.1)
[2021-11-30 07:50] LABS: ALBUMIN 1.5 g/dl (3.4-5.0); GLUCOSE,RANDOM 231 mg/dL (74-106)
[2021-11-30 07:54] LABS: BILIRUBIN,TOTAL 0.6 mg/dL (0.2-1); CREATININE 1.1 mg/dL (0.55-1.3); PHOSPHOROUS 3.8 mg/dL (2.5-4.9); SGOT/AST 238 U/L (15-37); SGPT/ALT 445 U/L (13-61); TOT PROT 4.1 g/dl (6.4-8.2)
[2021-11-30 07:58] LABS: ALK PHOS 325 U/L (45-117); ANION GAP 5 MMOL/L (8-16); BLOOD UREA NITROGEN 120.6 mg/dL (7-18); CO2 > 45 mmol/L (21-32)
[2021-11-30] MEDS: ALBUTEROL SO4 2.5/IPRATROPIUM 0.5 INH SOL 3 ML VIAL.NEB. NEB SCH ×3 (08:10→20:15)
[2021-11-30 10:24] LABS: ANISOCYTOSIS 0; MACROCYTOSIS 0
[2021-11-30] MEDS: methylPREDNISolone NA SUCC 40 MG/1 ML VIAL IVPUSH SCH (10:47)
[2021-11-30] MEDS: SODIUM ZIRCONIUM CYCLOSILICATE (LOKELMA) 5 GM PACKET PO SCH (10:58)
[2021-11-30] MEDS: PANTOPRAZOLE SODIUM 40 MG VIAL IVPUSH SCH ×2 (10:58→22:29)
[2021-11-30] MEDS: ENOXAPARIN NA (PORCINE) 40 MG/0.4 ML DISP.SYRIN SQ SCH (10:58)
[2021-11-30] MEDS: FLUTICASONE/UMECLIDIN/VILANTER(100-62.5-25 TRELEGY ELLIPTA) INAHLER IH SCH (10:58)
[2021-11-30] MEDS: FUROSEMIDE 40 MG/4 ML INJECTABLE VIAL IVPUSH SCH (13:00)
[2021-11-30 13:08] LABS: ARTERIAL BLD GAS O2 SATURATION 91.3 % (95-98); ARTERIAL BLOOD GAS PO2 60.9 mmHg (80-100); ARTERIAL BLOOD GAS pH 7.455 (7.350-7.450)
[2021-11-30 13:11] LABS: ALLENS TEST POSITIVE; VENT MODE AC; VENT RATE 26
[2021-11-30] MEDS ORDERED: VANCOMYCIN/WATER FOR INJ (PEG) 1,000 MG/200 ML BAG IVPB ONE (13:57)
[2021-11-30] MEDS: NOREPINEPHRINE BITARTRATE/D5W 8 MG/250 ML BAG IVPB SCH (17:32)
[2021-11-30] MEDS: MIDAZOLAM IN 0.9 % SOD.CHLORID 100 MG/100 ML PLAST..BAG IVPB SCH (17:33)
[2021-11-30 18:14] LABS: ARTERIAL BLD GAS O2 SATURATION 91.5 % (95-98); ARTERIAL BLOOD GAS BASE EXCESS 16.7 mmol/L (-2-2); ARTERIAL BLOOD GAS PO2 67.3 mmHg (80-100); ARTERIAL BLOOD GAS pH 7.357 (7.350-7.450)
[2021-11-30 18:23] LABS: VENT MODE A/C; VENT RATE 22
[2021-11-30] MEDS: VASOPRESSIN 40 UNITS/100 ML BAG IV SCH (21:29)
[2021-11-30] MEDS: CHLORHEXIDINE GLUCONATE 4% CLEANSER FOR DECOLONIZATION TP SCH (22:29)
[2021-11-30] MEDS: FENTANYL NS IVPB 500 MCG/100 ML BAG IVPB SCH (22:30)
[2021-12-01] MEDS: MEROPENEM 1 GM in DEXTROSE 5%-WATER 100 ML IVPB SCH ×3 (02:39→19:00)
[2021-12-01] MEDS: INSULIN SLIDING SCALE (NOVOLOG) 1 VIAL SQ SCH ×6 (03:30→23:16)
[2021-12-01 06:39] LABS: ARTERIAL BLOOD GAS BASE EXCESS 17.3 mmol/L (-2-2); ARTERIAL BLOOD GAS PO2 71.3 mmHg (80-100); ARTERIAL BLOOD GAS pH 7.372 (7.350-7.450)
[2021-12-01 06:50] LABS: ALLENS TEST POSITIVE
[2021-12-01 06:51] LABS: VENT MODE A/C; VENT RATE 24
[2021-12-01 07:22] LABS: HEMATOCRIT 23.9 % (32.4-45.2); HEMOGLOBIN 7.4 GM/dL (10.7-15.3); MCH 27.6 pg (25.7-33.7); MEAN PLT VOLUME 11.9 fl (7.5-11.1); PLATELET COUNT 101 10^3/uL (134-434); RBC 2.68 M/mm3 (3.60-5.2); RDW 13.6 % (11.6-15.6); WHITE BLOOD COUNT 28.9 K/mm3 (4.0-10.0)
[2021-12-01 07:40] LABS: CHLORIDE 95 mmol/L (98-107); SODIUM 144 mmol/L (136-145)
[2021-12-01 07:43] LABS: ALBUMIN 1.3 g/dl (3.4-5.0); GLUCOSE,RANDOM 195 mg/dL (74-106)
[2021-12-01 07:46] LABS: CREATININE 1.2 mg/dL (0.55-1.3); PHOSPHOROUS 4.9 mg/dL (2.5-4.9); SGOT/AST 124 U/L (15-37); SGPT/ALT 274 U/L (13-61)
[2021-12-01 07:48] LABS: BILIRUBIN,TOTAL 0.4 mg/dL (0.2-1); TOT PROT 3.7 g/dl (6.4-8.2)
[2021-12-01 07:51] LABS: ALK PHOS 257 U/L (45-117); ANION GAP 5 MMOL/L (8-16); BLOOD UREA NITROGEN 129.5 mg/dL (7-18); CO2 > 45 mmol/L (21-32)
[2021-12-01] MEDS: ALBUTEROL SO4 2.5/IPRATROPIUM 0.5 INH SOL 3 ML VIAL.NEB. NEB SCH ×2 (08:01→14:50)
[2021-12-01 08:45] LABS: ANISOCYTOSIS 0; HELMET CELLS 0; HOWELL-JOLLY BODIES 0; MACROCYTOSIS 0; OVALOCYTE 0; ROULEAU 0; SICKELED CELLS 0; TARGET CELLS 0; TEAR DROP CELLS 0; TOXIC GRANULATION 0
[2021-12-01] MEDS: PANTOPRAZOLE SODIUM 40 MG VIAL IVPUSH SCH ×2 (09:53→21:41)
[2021-12-01] MEDS: ENOXAPARIN NA (PORCINE) 40 MG/0.4 ML DISP.SYRIN SQ SCH (09:54)
[2021-12-01] MEDS: FUROSEMIDE 40 MG/4 ML INJECTABLE VIAL IVPUSH SCH (09:54)
[2021-12-01] MEDS: SODIUM ZIRCONIUM CYCLOSILICATE (LOKELMA) 5 GM PACKET PO SCH (09:54)
[2021-12-01] MEDS: methylPREDNISolone NA SUCC 40 MG/1 ML VIAL IVPUSH SCH (09:54)
[2021-12-01] MEDS: FLUTICASONE/UMECLIDIN/VILANTER(100-62.5-25 TRELEGY ELLIPTA) INAHLER IH SCH (09:54)
[2021-12-01] MEDS ORDERED: SODIUM ZIRCONIUM CYCLOSILICATE (LOKELMA) 5 GM PACKET PO ONE (14:45)
[2021-12-01] MEDS: NOREPINEPHRINE BITARTRATE/D5W 8 MG/250 ML BAG IVPB SCH (14:46)
[2021-12-01] MEDS: MIDAZOLAM IN 0.9 % SOD.CHLORID 100 MG/100 ML PLAST..BAG IVPB SCH (19:34)
[2021-12-01] MEDS: CHLORHEXIDINE GLUCONATE 4% CLEANSER FOR DECOLONIZATION TP SCH (23:15)
[2021-12-01] MEDS: FENTANYL NS IVPB 500 MCG/100 ML BAG IVPB SCH (23:15)
[2021-12-01] MEDS: VASOPRESSIN 40 UNITS/100 ML BAG IV SCH (23:15)
[2021-12-02] MEDS: MEROPENEM 1 GM in DEXTROSE 5%-WATER 100 ML IVPB SCH ×3 (01:02→17:34)
[2021-12-02] MEDS: INSULIN SLIDING SCALE (NOVOLOG) 1 VIAL SQ SCH ×6 (02:39→23:22)
[2021-12-02] MEDS: FENTANYL NS IVPB 500 MCG/100 ML BAG IVPB SCH ×3 (04:35→23:13)
[2021-12-02 07:05] LABS: ARTERIAL BLD GAS O2 SATURATION 96.3 % (95-98); ARTERIAL BLOOD GAS BASE EXCESS 16.6 mmol/L (-2-2); ARTERIAL BLOOD GAS PO2 83.1 mmHg (80-100); ARTERIAL BLOOD GAS pH 7.451 (7.350-7.450)
[2021-12-02 07:10] LABS: VENT MODE A/C; VENT RATE 24
[2021-12-02 08:00] LABS: HEMATOCRIT 22.9 % (32.4-45.2); HEMOGLOBIN 7.4 GM/dL (10.7-15.3); MCH 28.8 pg (25.7-33.7); MCHC 32.3 g/dl (32.0-36.0); MEAN CELL VOLUME 89.2 fl (80-96); MEAN PLT VOLUME 11.8 fl (7.5-11.1); PLATELET COUNT 108 10^3/uL (134-434); RBC 2.56 M/mm3 (3.60-5.2); RDW 13.3 % (11.6-15.6)
[2021-12-02 08:03] LABS: WHITE BLOOD COUNT 31.4 K/mm3 (4.0-10.0)
[2021-12-02 08:13] LABS: CHLORIDE 94 mmol/L (98-107); SODIUM 145 mmol/L (136-145)
[2021-12-02 08:23] LABS: CALCIUM 7.9 mg/dL (8.5-10.1)
[2021-12-02 08:24] LABS: ALBUMIN 1.4 g/dl (3.4-5.0); GLUCOSE,RANDOM 221 mg/dL (74-106)
[2021-12-02 08:27] LABS: PHOSPHOROUS 4.3 mg/dL (2.5-4.9); SGOT/AST 122 U/L (15-37); SGPT/ALT 217 U/L (13-61)
[2021-12-02 08:28] LABS: BILIRUBIN,TOTAL 0.4 mg/dL (0.2-1)
[2021-12-02 08:29] LABS: TOT PROT 3.9 g/dl (6.4-8.2)
[2021-12-02 08:30] LABS: ALK PHOS 251 U/L (45-117)
[2021-12-02 08:44] LABS: ANION GAP 6 MMOL/L (8-16); BLOOD UREA NITROGEN 124.2 mg/dL (7-18); CO2 > 45 mmol/L (21-32)
[2021-12-02 09:54] LABS: ANISOCYTOSIS 2+; MACROCYTOSIS 0; OVALOCYTE 1+
[2021-12-02] MEDS: SODIUM ZIRCONIUM CYCLOSILICATE (LOKELMA) 5 GM PACKET PO SCH (10:08)
[2021-12-02] MEDS: FUROSEMIDE 40 MG/4 ML INJECTABLE VIAL IVPUSH SCH (10:08)
[2021-12-02] MEDS: PANTOPRAZOLE SODIUM 40 MG VIAL IVPUSH SCH ×2 (10:08→23:13)
[2021-12-02] MEDS: ENOXAPARIN NA (PORCINE) 40 MG/0.4 ML DISP.SYRIN SQ SCH (10:08)
[2021-12-02] MEDS: methylPREDNISolone NA SUCC 40 MG/1 ML VIAL IVPUSH SCH (10:09)
[2021-12-02] MEDS: FLUTICASONE/UMECLIDIN/VILANTER(100-62.5-25 TRELEGY ELLIPTA) INAHLER IH SCH (10:11)
[2021-12-02] MEDS: NOREPINEPHRINE BITARTRATE/D5W 8 MG/250 ML BAG IVPB SCH (13:42)
[2021-12-02] MEDS: MIDAZOLAM IN 0.9 % SOD.CHLORID 100 MG/100 ML PLAST..BAG IVPB SCH ×2 (13:42→23:14)
[2021-12-02] MEDS: VASOPRESSIN 40 UNITS/100 ML BAG IV SCH (23:13)
[2021-12-02] MEDS: CHLORHEXIDINE GLUCONATE 4% CLEANSER FOR DECOLONIZATION TP SCH (23:13)
[2021-12-03] MEDS: MEROPENEM 1 GM in DEXTROSE 5%-WATER 100 ML IVPB SCH ×3 (01:25→21:29)
[2021-12-03] MEDS: INSULIN SLIDING SCALE (NOVOLOG) 1 VIAL SQ SCH ×6 (02:37→23:38)
[2021-12-03] MEDS: FENTANYL NS IVPB 500 MCG/100 ML BAG IVPB SCH ×3 (02:38→23:40)
[2021-12-03 07:10] LABS: HEMATOCRIT 19.2 % (32.4-45.2); MCHC 30.8 g/dl (32.0-36.0); MEAN CELL VOLUME 90.9 fl (80-96); MEAN PLT VOLUME 11.4 fl (7.5-11.1); PLATELET COUNT 79 10^3/uL (134-434); RBC 2.11 M/mm3 (3.60-5.2); RDW 13.7 % (11.6-15.6); WHITE BLOOD COUNT 26.5 K/mm3 (4.0-10.0)
[2021-12-03 07:28] LABS: HEMOGLOBIN 5.9 GM/dL (10.7-15.3)
[2021-12-03 07:31] LABS: SODIUM 146 mmol/L (136-145)
[2021-12-03 07:37] LABS: CALCIUM 8.1 mg/dL (8.5-10.1); GLUCOSE,RANDOM 222 mg/dL (74-106)
[2021-12-03 07:38] LABS: ALBUMIN 1.2 g/dl (3.4-5.0); MAGNESIUM 2.7 mg/dL (1.8-2.4)
[2021-12-03 07:41] LABS: PHOSPHOROUS 4.7 mg/dL (2.5-4.9); SGOT/AST 102 U/L (15-37); SGPT/ALT 160 U/L (13-61)
[2021-12-03 07:43] LABS: BILIRUBIN,TOTAL 0.3 mg/dL (0.2-1); TOT PROT 3.3 g/dl (6.4-8.2)
[2021-12-03 07:49] LABS: ALK PHOS 198 U/L (45-117); ANION GAP 6 MMOL/L (8-16); BLOOD UREA NITROGEN 124.8 mg/dL (7-18); CHLORIDE 96 mmol/L (98-107); CO2 > 45 mmol/L (21-32)
[2021-12-03 09:26] LABS: ANISOCYTOSIS 1+; MACROCYTOSIS 0
[2021-12-03] MEDS: FUROSEMIDE 40 MG/4 ML INJECTABLE VIAL IVPUSH SCH (09:30)
[2021-12-03] MEDS: SODIUM ZIRCONIUM CYCLOSILICATE (LOKELMA) 5 GM PACKET PO SCH (09:30)
[2021-12-03] MEDS: PANTOPRAZOLE SODIUM 40 MG VIAL IVPUSH SCH ×2 (09:31→22:34)
[2021-12-03] MEDS: methylPREDNISolone NA SUCC 40 MG/1 ML VIAL IVPUSH SCH (09:31)
[2021-12-03] MEDS: FLUTICASONE/UMECLIDIN/VILANTER(100-62.5-25 TRELEGY ELLIPTA) INAHLER IH SCH (09:45)
[2021-12-03 10:38] LABS: ARTERIAL BLD GAS O2 SATURATION 93.7 % (95-98); ARTERIAL BLOOD GAS BASE EXCESS 22.5 mmol/L (-2-2); ARTERIAL BLOOD GAS PO2 66.4 mmHg (80-100); ARTERIAL BLOOD GAS pH 7.486 (7.350-7.450)
[2021-12-03 10:41] LABS: VENT MODE AC
[2021-12-03 10:42] LABS: VENT RATE 24
[2021-12-03] MEDS ORDERED: VORICONAZOLE 200 MG PO SCH (22:00)
[2021-12-03] MEDS: CHLORHEXIDINE GLUCONATE 4% CLEANSER FOR DECOLONIZATION TP SCH (22:32)
[2021-12-03] MEDS: MIDAZOLAM IN 0.9 % SOD.CHLORID 100 MG/100 ML PLAST..BAG IVPB SCH (22:33)
[2021-12-03] MEDS: VORICONAZOLE 200 MG NR SCH (22:33)
[2021-12-04 00:21] LABS: HEMATOCRIT 37.8 % (32.4-45.2); HEMOGLOBIN 12.8 GM/dL (10.7-15.3); MCH 29.5 pg (25.7-33.7); MEAN CELL VOLUME 86.8 fl (80-96); MEAN PLT VOLUME 10.6 fl (7.5-11.1); PLATELET COUNT 71 10^3/uL (134-434); RBC 4.36 M/mm3 (3.60-5.2); RDW 14.2 % (11.6-15.6)
[2021-12-04 00:24] LABS: WHITE BLOOD COUNT 30.7 K/mm3 (4.0-10.0)
[2021-12-04] MEDS: MEROPENEM 1 GM in DEXTROSE 5%-WATER 100 ML IVPB SCH ×3 (01:22→17:00)
[2021-12-04] MEDS: INSULIN SLIDING SCALE (NOVOLOG) 1 VIAL SQ SCH ×6 (03:00→23:15)
[2021-12-04 05:36] LABS: ANISOCYTOSIS 3+; CORRECTED WBC 27.41 K/mm3; MACROCYTOSIS 0; OVALOCYTE 1+; TEAR DROP CELLS 1+
[2021-12-04 07:46] LABS: HEMATOCRIT 38.3 % (32.4-45.2); HEMOGLOBIN 12.8 GM/dL (10.7-15.3); MCH 29.1 pg (25.7-33.7); MCHC 33.3 g/dl (32.0-36.0); MEAN CELL VOLUME 87.5 fl (80-96); MEAN PLT VOLUME 10.6 fl (7.5-11.1); PLATELET COUNT 72 10^3/uL (134-434); RBC 4.38 M/mm3 (3.60-5.2); RDW 14.5 % (11.6-15.6)
[2021-12-04 07:55] LABS: WHITE BLOOD COUNT 30.9 K/mm3 (4.0-10.0)
[2021-12-04 08:01] LABS: CHLORIDE 94 mmol/L (98-107); SODIUM 146 mmol/L (136-145)
[2021-12-04 08:03] LABS: CALCIUM 7.6 mg/dL (8.5-10.1)
[2021-12-04 08:04] LABS: GLUCOSE,RANDOM 211 mg/dL (74-106)
[2021-12-04 08:05] LABS: MAGNESIUM 2.6 mg/dL (1.8-2.4)
[2021-12-04 08:07] LABS: CREATININE 0.9 mg/dL (0.55-1.3); PHOSPHOROUS 3.6 mg/dL (2.5-4.9); SGOT/AST 149 U/L (15-37)
[2021-12-04 08:08] LABS: TOT PROT 4.3 g/dl (6.4-8.2)
[2021-12-04 08:21] LABS: ALBUMIN 1.5 g/dl (3.4-5.0); ALK PHOS 276 U/L (45-117); ANION GAP 7 MMOL/L (8-16); BILIRUBIN,TOTAL 0.5 mg/dL (0.2-1); BLOOD UREA NITROGEN 116.5 mg/dL (7-18); CO2 > 45 mmol/L (21-32); SGPT/ALT 192 U/L (13-61)
[2021-12-04 09:46] LABS: ANISOCYTOSIS 0; HELMET CELLS 0; HOWELL-JOLLY BODIES 0; MACROCYTOSIS 0; OVALOCYTE 0; ROULEAU 0; SICKELED CELLS 0; TARGET CELLS 0; TEAR DROP CELLS 0; TOXIC GRANULATION 0
[2021-12-04] MEDS: FUROSEMIDE 40 MG/4 ML INJECTABLE VIAL IVPUSH SCH (09:49)
[2021-12-04] MEDS: methylPREDNISolone NA SUCC 40 MG/1 ML VIAL IVPUSH SCH (09:50)
[2021-12-04] MEDS: PANTOPRAZOLE SODIUM 40 MG VIAL IVPUSH SCH ×2 (09:50→21:11)
[2021-12-04] MEDS: FLUTICASONE/UMECLIDIN/VILANTER(100-62.5-25 TRELEGY ELLIPTA) INAHLER IH SCH (09:51)
[2021-12-04 10:04] LABS: ARTERIAL BLD GAS O2 SATURATION 85.4 % (95-98); ARTERIAL BLOOD GAS PO2 50.1 mmHg (80-100); ARTERIAL BLOOD GAS pH 7.452 (7.350-7.450)
[2021-12-04 10:06] LABS: VENT MODE A/C
[2021-12-04 10:07] LABS: VENT RATE 29
[2021-12-04] MEDS: VORICONAZOLE 200 MG NR SCH ×2 (10:31→22:43)
[2021-12-04] MEDS: MIDAZOLAM IN 0.9 % SOD.CHLORID 100 MG/100 ML PLAST..BAG IVPB SCH (16:57)
[2021-12-04] MEDS: CHLORHEXIDINE GLUCONATE 4% CLEANSER FOR DECOLONIZATION TP SCH (21:11)
[2021-12-04] MEDS: FENTANYL NS IVPB 500 MCG/100 ML BAG IVPB SCH (21:36)
[2021-12-05] MEDS: MEROPENEM 1 GM in DEXTROSE 5%-WATER 100 ML IVPB SCH ×3 (02:54→21:59)
[2021-12-05] MEDS: INSULIN SLIDING SCALE (NOVOLOG) 1 VIAL SQ SCH ×5 (03:05→22:14)
[2021-12-05] MEDS: FENTANYL NS IVPB 500 MCG/100 ML BAG IVPB SCH ×2 (07:28→16:56)
[2021-12-05] MEDS: FUROSEMIDE 40 MG/4 ML INJECTABLE VIAL IVPUSH SCH (09:07)
[2021-12-05] MEDS: PANTOPRAZOLE SODIUM 40 MG VIAL IVPUSH SCH ×2 (09:07→22:00)
[2021-12-05] MEDS: methylPREDNISolone NA SUCC 40 MG/1 ML VIAL IVPUSH SCH (09:07)
[2021-12-05] MEDS: FLUTICASONE/UMECLIDIN/VILANTER(100-62.5-25 TRELEGY ELLIPTA) INAHLER IH SCH (09:13)
[2021-12-05 10:21] LABS: ARTERIAL BLD GAS O2 SATURATION 90.7 % (95-98); ARTERIAL BLOOD GAS BASE EXCESS 15.9 mmol/L (-2-2); ARTERIAL BLOOD GAS PO2 61.1 mmHg (80-100); ARTERIAL BLOOD GAS pH 7.413 (7.350-7.450)
[2021-12-05 10:23] LABS: ALLENS TEST POSITIVE; VENT MODE AC; VENT RATE 24
[2021-12-05 11:12] LABS: HEMOGLOBIN 11.3 GM/dL (10.7-15.3); MCH 28.8 pg (25.7-33.7); MCHC 32.2 g/dl (32.0-36.0); MEAN CELL VOLUME 89.3 fl (80-96); MEAN PLT VOLUME 10.4 fl (7.5-11.1); PLATELET COUNT 44 10^3/uL (134-434); RBC 3.92 M/mm3 (3.60-5.2); RDW 14.5 % (11.6-15.6); WHITE BLOOD COUNT 19.5 K/mm3 (4.0-10.0)
[2021-12-05 11:35] LABS: CHLORIDE 95 mmol/L (98-107); SODIUM 147 mmol/L (136-145)
[2021-12-05 11:37] LABS: ALBUMIN 1.3 g/dl (3.4-5.0); GLUCOSE,RANDOM 228 mg/dL (74-106)
[2021-12-05 11:40] LABS: CREATININE 0.7 mg/dL (0.55-1.3); SGPT/ALT 152 U/L (13-61)
[2021-12-05 11:41] LABS: SGOT/AST 105 U/L (15-37)
[2021-12-05 11:42] LABS: BILIRUBIN,TOTAL 0.4 mg/dL (0.2-1); TOT PROT 3.9 g/dl (6.4-8.2)
[2021-12-05 11:43] LABS: ALK PHOS 227 U/L (45-117); ANION GAP 7 MMOL/L (8-16); BLOOD UREA NITROGEN 108.2 mg/dL (7-18); CO2 > 45 mmol/L (21-32)
[2021-12-05] MEDS: VORICONAZOLE 200 MG NR SCH ×2 (13:25→22:01)
[2021-12-05] MEDS: POTASSIUM CHLORIDE ORAL LIQUID 20 MEQ/15 ML NGT SCH ×2 (13:26→22:00)
[2021-12-05] MEDS: MIDAZOLAM IN 0.9 % SOD.CHLORID 100 MG/100 ML PLAST..BAG IVPB SCH ×2 (14:52→16:56)
[2021-12-05 20:44] LABS: CHLORIDE 96 mmol/L (98-107); SODIUM 148 mmol/L (136-145)
[2021-12-05 20:46] LABS: CALCIUM 8.2 mg/dL (8.5-10.1)
[2021-12-05 20:47] LABS: ALBUMIN 1.4 g/dl (3.4-5.0); GLUCOSE,RANDOM 277 mg/dL (74-106)
[2021-12-05 20:50] LABS: BILIRUBIN,TOTAL 0.4 mg/dL (0.2-1); CREATININE 0.8 mg/dL (0.55-1.3); SGOT/AST 105 U/L (15-37); SGPT/ALT 153 U/L (13-61)
[2021-12-05 20:52] LABS: TOT PROT 4.1 g/dl (6.4-8.2)
[2021-12-05 20:55] LABS: ALK PHOS 221 U/L (45-117); ANION GAP 6 MMOL/L (8-16); BLOOD UREA NITROGEN 107.1 mg/dL (7-18); CO2 > 45 mmol/L (21-32)
[2021-12-05] MEDS: CHLORHEXIDINE GLUCONATE 4% CLEANSER FOR DECOLONIZATION TP SCH (22:00)
[2021-12-06] MEDS: INSULIN SLIDING SCALE (NOVOLOG) 1 VIAL SQ SCH ×7 (00:36→23:40)
[2021-12-06] MEDS: FENTANYL NS IVPB 500 MCG/100 ML BAG IVPB SCH ×4 (01:46→23:07)
[2021-12-06 06:53] LABS: ARTERIAL BLD GAS O2 SATURATION 96.5 % (95-98); ARTERIAL BLOOD GAS BASE EXCESS 13.8 mmol/L (-2-2); ARTERIAL BLOOD GAS PO2 92.2 mmHg (80-100); ARTERIAL BLOOD GAS pH 7.375 (7.350-7.450)
[2021-12-06 07:02] LABS: VENT MODE A/C; VENT RATE 24
[2021-12-06 07:59] LABS: HEMATOCRIT 36.4 % (32.4-45.2); HEMOGLOBIN 11.6 GM/dL (10.7-15.3); MCH 28.8 pg (25.7-33.7); MCHC 31.8 g/dl (32.0-36.0); MEAN CELL VOLUME 90.6 fl (80-96); MEAN PLT VOLUME 12.5 fl (7.5-11.1); PLATELET COUNT 49 10^3/uL (134-434); RBC 4.01 M/mm3 (3.60-5.2); RDW 14.6 % (11.6-15.6); WHITE BLOOD COUNT 20.1 K/mm3 (4.0-10.0)
[2021-12-06 08:12] LABS: CHLORIDE 98 mmol/L (98-107); SODIUM 148 mmol/L (136-145)
[2021-12-06 08:23] LABS: CALCIUM 8.3 mg/dL (8.5-10.1)
[2021-12-06 08:24] LABS: ALBUMIN 1.4 g/dl (3.4-5.0); BLOOD UREA NITROGEN 103.1 mg/dL (7-18); GLUCOSE,RANDOM 264 mg/dL (74-106); MAGNESIUM 2.4 mg/dL (1.8-2.4)
[2021-12-06 08:27] LABS: CREATININE 0.7 mg/dL (0.55-1.3); PHOSPHOROUS 3.4 mg/dL (2.5-4.9); SGOT/AST 88 U/L (15-37); SGPT/ALT 148 U/L (13-61)
[2021-12-06 08:28] LABS: TOT PROT 4.1 g/dl (6.4-8.2)
[2021-12-06 08:29] LABS: BILIRUBIN,TOTAL 0.4 mg/dL (0.2-1)
[2021-12-06 08:30] LABS: ALK PHOS 228 U/L (45-117)
[2021-12-06 08:32] LABS: ANION GAP 5 MMOL/L (8-16); CO2 > 45 mmol/L (21-32)
[2021-12-06] MEDS: FUROSEMIDE 40 MG/4 ML INJECTABLE VIAL IVPUSH SCH (10:11)
[2021-12-06] MEDS: methylPREDNISolone NA SUCC 40 MG/1 ML VIAL IVPUSH SCH (10:11)
[2021-12-06] MEDS: MEROPENEM 1 GM in DEXTROSE 5%-WATER 100 ML IVPB SCH ×2 (10:11→22:09)
[2021-12-06] MEDS: FLUTICASONE/UMECLIDIN/VILANTER(100-62.5-25 TRELEGY ELLIPTA) INAHLER IH SCH (10:12)
[2021-12-06] MEDS: PANTOPRAZOLE SODIUM 40 MG VIAL IVPUSH SCH ×2 (10:12→22:09)
[2021-12-06] MEDS: ARTIFICIAL TEARS (POLYVINYL ALCOHOL) OPTH DROPS OU PRN (10:12)
[2021-12-06] MEDS: VORICONAZOLE 200 MG NR SCH ×2 (11:29→22:09)
[2021-12-06] MEDS: CHLORHEXIDINE GLUCONATE 4% CLEANSER FOR DECOLONIZATION TP SCH (22:09)
[2021-12-07] MEDS: INSULIN SLIDING SCALE (NOVOLOG) 1 VIAL SQ SCH ×4 (06:47→21:30)
[2021-12-07] MEDS: FENTANYL NS IVPB 500 MCG/100 ML BAG IVPB SCH ×2 (07:00→16:30)
[2021-12-07 07:21] LABS: ARTERIAL BLD GAS O2 SATURATION 89.3 % (95-98); ARTERIAL BLOOD GAS BASE EXCESS 20.3 mmol/L (-2-2); ARTERIAL BLOOD GAS PO2 56.8 mmHg (80-100); ARTERIAL BLOOD GAS pH 7.446 (7.350-7.450)
[2021-12-07 07:24] LABS: VENT MODE A/C; VENT RATE 24
[2021-12-07 07:57] LABS: HEMATOCRIT 37.6 % (32.4-45.2); HEMOGLOBIN 11.7 GM/dL (10.7-15.3); MCH 28.6 pg (25.7-33.7); MCHC 31.2 g/dl (32.0-36.0); MEAN CELL VOLUME 91.6 fl (80-96); MEAN PLT VOLUME 11.3 fl (7.5-11.1); PLATELET COUNT 39 10^3/uL (134-434); RBC 4.11 M/mm3 (3.60-5.2); RDW 14.7 % (11.6-15.6); WHITE BLOOD COUNT 22.4 K/mm3 (4.0-10.0)
[2021-12-07 08:22] LABS: CHLORIDE 99 mmol/L (98-107); SODIUM 149 mmol/L (136-145)
[2021-12-07 08:24] LABS: CALCIUM 8.2 mg/dL (8.5-10.1)
[2021-12-07 08:26] LABS: ALBUMIN 1.4 g/dl (3.4-5.0); BLOOD UREA NITROGEN 90.3 mg/dL (7-18); GLUCOSE,RANDOM 140 mg/dL (74-106)
[2021-12-07 08:27] LABS: CREATININE 0.6 mg/dL (0.55-1.3)
[2021-12-07 08:28] LABS: SGOT/AST 105 U/L (15-37); SGPT/ALT 151 U/L (13-61)
[2021-12-07 08:29] LABS: TOT PROT 4.3 g/dl (6.4-8.2)
[2021-12-07 08:31] LABS: BILIRUBIN,TOTAL 0.6 mg/dL (0.2-1)
[2021-12-07 08:55] LABS: ALK PHOS 191 U/L (45-117); ANION GAP 5 MMOL/L (8-16); CO2 > 45 mmol/L (21-32)
[2021-12-07] MEDS: MEROPENEM 1 GM in DEXTROSE 5%-WATER 100 ML IVPB SCH ×2 (09:16→21:25)
[2021-12-07] MEDS: PANTOPRAZOLE SODIUM 40 MG VIAL IVPUSH SCH ×2 (09:17→21:30)
[2021-12-07] MEDS: FUROSEMIDE 40 MG/4 ML INJECTABLE VIAL IVPUSH SCH (09:17)
[2021-12-07] MEDS: FLUTICASONE/UMECLIDIN/VILANTER(100-62.5-25 TRELEGY ELLIPTA) INAHLER IH SCH (09:17)
[2021-12-07] MEDS: methylPREDNISolone NA SUCC 40 MG/1 ML VIAL IVPUSH SCH (09:17)
[2021-12-07] MEDS: VORICONAZOLE 200 MG NR SCH ×2 (12:38→21:32)
[2021-12-07] MEDS ORDERED: LACTATED RINGERS SOLUTION 1,000 ML/1,000 ML INFUS.BAG IV ONE (15:41)
[2021-12-07] MEDS: MIDAZOLAM IN 0.9 % SOD.CHLORID 100 MG/100 ML PLAST..BAG IVPB SCH (16:30)
[2021-12-07] MEDS: CHLORHEXIDINE GLUCONATE 4% CLEANSER FOR DECOLONIZATION TP SCH (21:25)
[2021-12-08] MEDS ORDERED: fentaNYL CITRATE 250 MCG/5 ML VIAL ONE (00:50)
[2021-12-08] MEDS: FENTANYL NS IVPB 500 MCG/100 ML BAG IVPB SCH (00:56)
[2021-12-08] MEDS: INSULIN SLIDING SCALE (NOVOLOG) 1 VIAL SQ SCH ×4 (06:22→21:19)
[2021-12-08 06:39] LABS: ARTERIAL BLD GAS O2 SATURATION 95.5 % (95-98); ARTERIAL BLOOD GAS PO2 80.3 mmHg (80-100); ARTERIAL BLOOD GAS pH 7.418 (7.350-7.450)
[2021-12-08 06:53] LABS: VENT MODE A/C; VENT RATE 24
[2021-12-08 07:12] LABS: HEMATOCRIT 28.8 % (32.4-45.2); HEMOGLOBIN 9.5 GM/dL (10.7-15.3); MCH 30.2 pg (25.7-33.7); MCHC 32.9 g/dl (32.0-36.0); MEAN CELL VOLUME 91.9 fl (80-96); MEAN PLT VOLUME 11.7 fl (7.5-11.1); PLATELET COUNT 38 10^3/uL (134-434); RBC 3.14 M/mm3 (3.60-5.2); RDW 14.4 % (11.6-15.6); WHITE BLOOD COUNT 10.4 K/mm3 (4.0-10.0)
[2021-12-08 07:19] LABS: CHLORIDE 97 mmol/L (98-107); SODIUM 145 mmol/L (136-145)
[2021-12-08 07:24] LABS: ALBUMIN 1.2 g/dl (3.4-5.0); BLOOD UREA NITROGEN 83.1 mg/dL (7-18); CALCIUM 7.7 mg/dL (8.5-10.1); GLUCOSE,RANDOM 229 mg/dL (74-106); MAGNESIUM 2.4 mg/dL (1.8-2.4)
[2021-12-08 07:27] LABS: CREATININE 0.5 mg/dL (0.55-1.3); PHOSPHOROUS 3.1 mg/dL (2.5-4.9); SGOT/AST 103 U/L (15-37); SGPT/ALT 138 U/L (13-61)
[2021-12-08 07:30] LABS: ALK PHOS 168 U/L (45-117); BILIRUBIN,TOTAL 0.5 mg/dL (0.2-1); TOT PROT 3.7 g/dl (6.4-8.2)
[2021-12-08 07:34] LABS: ANION GAP 3 MMOL/L (8-16); CO2 > 45 mmol/L (21-32)
[2021-12-08 08:12] LABS: THYROID STIM IMMUNOGLOBULIN <0.10 IU/L (0.00-0.55)
[2021-12-08] MEDS: FUROSEMIDE 40 MG/4 ML INJECTABLE VIAL IVPUSH SCH (09:26)
[2021-12-08] MEDS: VORICONAZOLE 200 MG NR SCH ×2 (09:26→21:21)
[2021-12-08] MEDS: methylPREDNISolone NA SUCC 40 MG/1 ML VIAL IVPUSH SCH (09:26)
[2021-12-08] MEDS: PANTOPRAZOLE SODIUM 40 MG VIAL IVPUSH SCH ×2 (09:28→21:20)
[2021-12-08] MEDS: MEROPENEM 1 GM in DEXTROSE 5%-WATER 100 ML IVPB SCH ×2 (09:28→21:19)
[2021-12-08] MEDS: FLUTICASONE/UMECLIDIN/VILANTER(100-62.5-25 TRELEGY ELLIPTA) INAHLER IH SCH (09:35)
[2021-12-08] MEDS ORDERED: FENTANYL NS IVPB 500 MCG/100 ML BAG IVPB ONE (10:55)
[2021-12-08 16:24] LABS: ARTERIAL BLD GAS O2 SATURATION 94.1 % (95-98); ARTERIAL BLOOD GAS BASE EXCESS 18.1 mmol/L (-2-2); ARTERIAL BLOOD GAS PO2 70.4 mmHg (80-100); ARTERIAL BLOOD GAS pH 7.443 (7.350-7.450)
[2021-12-08 16:27] LABS: VENT MODE A/C; VENT RATE 24
[2021-12-08 17:16] LABS: CHLORIDE 94 mmol/L (98-107); SODIUM 145 mmol/L (136-145)
[2021-12-08 17:17] LABS: GLUCOSE,RANDOM 286 mg/dL (74-106)
[2021-12-08 17:19] LABS: BLOOD UREA NITROGEN 85.6 mg/dL (7-18)
[2021-12-08 17:21] LABS: CREATININE 0.6 mg/dL (0.55-1.3)
[2021-12-08 17:36] LABS: ANION GAP 6 MMOL/L (8-16); CO2 > 45 mmol/L (21-32)
[2021-12-08] MEDS: CHLORHEXIDINE GLUCONATE 4% CLEANSER FOR DECOLONIZATION TP SCH (21:19)
[2021-12-09] MEDS ORDERED: fentaNYL CITRATE 250 MCG/5 ML VIAL ONE (01:14)
[2021-12-09] MEDS: FENTANYL NS IVPB 500 MCG/100 ML BAG IVPB SCH ×2 (01:30→12:48)
[2021-12-09] MEDS: INSULIN SLIDING SCALE (NOVOLOG) 1 VIAL SQ SCH ×4 (06:10→21:11)
[2021-12-09 07:00] LABS: ARTERIAL BLD GAS O2 SATURATION 96.8 % (95-98); ARTERIAL BLOOD GAS BASE EXCESS 15.7 mmol/L (-2-2); ARTERIAL BLOOD GAS pH 7.406 (7.350-7.450)
[2021-12-09 07:04] LABS: VENT MODE A/C; VENT RATE 24
[2021-12-09 07:25] LABS: BASO % 0.2 % (0-2.0); EOS % 0.1 % (0-4.5); HEMATOCRIT 29.5 % (32.4-45.2); HEMOGLOBIN 9.4 GM/dL (10.7-15.3); LYMPH % 3.9 % (8-40); MCH 29.2 pg (25.7-33.7); MEAN CELL VOLUME 91.4 fl (80-96); MEAN PLT VOLUME 11.9 fl (7.5-11.1); MONO % 6.4 % (3.8-10.2); NEUT % 89.4 % (42.8-82.8); PLATELET COUNT 47 10^3/uL (134-434); RBC 3.23 M/mm3 (3.60-5.2); WHITE BLOOD COUNT 6.1 K/mm3 (4.0-10.0)
[2021-12-09 07:47] LABS: CHLORIDE 94 mmol/L (98-107); SODIUM 142 mmol/L (136-145)
[2021-12-09 07:49] LABS: ALBUMIN 1.3 g/dl (3.4-5.0); CALCIUM 7.6 mg/dL (8.5-10.1); GLUCOSE,RANDOM 219 mg/dL (74-106); MAGNESIUM 2.3 mg/dL (1.8-2.4)
[2021-12-09 07:50] LABS: BLOOD UREA NITROGEN 77.3 mg/dL (7-18)
[2021-12-09 07:52] LABS: CREATININE 0.5 mg/dL (0.55-1.3); PHOSPHOROUS 3.1 mg/dL (2.5-4.9); SGPT/ALT 129 U/L (13-61)
[2021-12-09 07:54] LABS: BILIRUBIN,TOTAL 0.4 mg/dL (0.2-1); SGOT/AST 79 U/L (15-37)
[2021-12-09 07:55] LABS: ALK PHOS 183 U/L (45-117)
[2021-12-09 07:57] LABS: ANION GAP 3 MMOL/L (8-16); CO2 > 45 mmol/L (21-32)
[2021-12-09] MEDS: PANTOPRAZOLE SODIUM 40 MG VIAL IVPUSH SCH ×2 (09:44→21:07)
[2021-12-09] MEDS: MEROPENEM 1 GM in DEXTROSE 5%-WATER 100 ML IVPB SCH ×2 (09:44→21:07)
[2021-12-09] MEDS: VORICONAZOLE 200 MG NR SCH ×2 (11:33→22:34)
[2021-12-09] MEDS: CHLORHEXIDINE GLUCONATE 4% CLEANSER FOR DECOLONIZATION TP SCH (21:07)
[2021-12-10] MEDS: INSULIN SLIDING SCALE (NOVOLOG) 1 VIAL SQ SCH ×4 (07:18→21:13)
[2021-12-10 08:04] LABS: HEMATOCRIT 25.1 % (32.4-45.2); HEMOGLOBIN 8.1 GM/dL (10.7-15.3); MCHC 32.4 g/dl (32.0-36.0); MEAN CELL VOLUME 92.5 fl (80-96); MEAN PLT VOLUME 11.4 fl (7.5-11.1); RBC 2.71 M/mm3 (3.60-5.2); WHITE BLOOD COUNT 3.2 K/mm3 (4.0-10.0)
[2021-12-10 08:11] LABS: PLATELET COUNT 33 10^3/uL (134-434)
[2021-12-10 08:23] LABS: ALBUMIN 1.1 g/dl (3.4-5.0); CALCIUM 7.5 mg/dL (8.5-10.1)
[2021-12-10 08:24] LABS: BLOOD UREA NITROGEN 68.3 mg/dL (7-18); MAGNESIUM 2.2 mg/dL (1.8-2.4)
[2021-12-10 08:26] LABS: CREATININE 0.4 mg/dL (0.55-1.3); PHOSPHOROUS 3.2 mg/dL (2.5-4.9)
[2021-12-10 08:28] LABS: BILIRUBIN,TOTAL 0.4 mg/dL (0.2-1); TOT PROT 3.5 g/dl (6.4-8.2)
[2021-12-10] MEDS: FENTANYL NS IVPB 500 MCG/100 ML BAG IVPB SCH ×3 (09:07→21:08)
[2021-12-10] MEDS: MEROPENEM 1 GM in DEXTROSE 5%-WATER 100 ML IVPB SCH (09:07)
[2021-12-10] MEDS: PANTOPRAZOLE SODIUM 40 MG VIAL IVPUSH SCH ×2 (09:07→21:11)
[2021-12-10] MEDS: POTASSIUM CHLORIDE ORAL LIQUID 20 MEQ/15 ML NGT SCH ×2 (09:08→16:15)
[2021-12-10] MEDS: dilTIAZem HCL 50 MG/10 ML - 10 ML VIAL IVPUSH PRN (09:09)
[2021-12-10] MEDS: dilTIAZem HCL 30 MG TABLET PO SCH ×2 (12:27→17:58)
[2021-12-10] MEDS: DEXMEDETOMIDINE PREMIX 400 MCG/100 ML BAG IVPB SCH (12:28)
[2021-12-10] MEDS: VORICONAZOLE 200 MG NR SCH ×2 (13:45→21:11)
[2021-12-10] MEDS ORDERED: POTASSIUM CHLORIDE ORAL LIQUID 20 MEQ/15 ML PO ONE (14:52)
[2021-12-10] MEDS ORDERED: LACTATED RINGERS SOLUTION 1,000 ML/1,000 ML INFUS.BAG IV ONE (18:41)
[2021-12-10] MEDS ORDERED: LACTATED RINGERS SOLUTION 1000 ML INFUS.BAG IV ONE (18:51)
[2021-12-10] MEDS: CHLORHEXIDINE GLUCONATE 4% CLEANSER FOR DECOLONIZATION TP SCH (21:11)
[2021-12-11] MEDS: FENTANYL NS IVPB 500 MCG/100 ML BAG IVPB SCH ×3 (04:04→16:26)
[2021-12-11] MEDS: dilTIAZem HCL 30 MG TABLET PO SCH ×4 (06:29→21:21)
[2021-12-11] MEDS: INSULIN SLIDING SCALE (NOVOLOG) 1 VIAL SQ SCH ×4 (06:30→21:21)
[2021-12-11 08:26] LABS: HEMATOCRIT 26.4 % (32.4-45.2); HEMOGLOBIN 8.4 GM/dL (10.7-15.3); MCH 29.7 pg (25.7-33.7); MCHC 31.8 g/dl (32.0-36.0); MEAN CELL VOLUME 93.6 fl (80-96); MEAN PLT VOLUME 10.9 fl (7.5-11.1); PLATELET COUNT 47 10^3/uL (134-434); RBC 2.82 M/mm3 (3.60-5.2); RDW 15.9 % (11.6-15.6); WHITE BLOOD COUNT 5.7 K/mm3 (4.0-10.0)
[2021-12-11 08:49] LABS: MAGNESIUM 2.1 mg/dL (1.8-2.4)
[2021-12-11 08:52] LABS: PHOSPHOROUS 2.6 mg/dL (2.5-4.9)
[2021-12-11 09:09] LABS: ANISOCYTOSIS 0; HELMET CELLS 0; HOWELL-JOLLY BODIES 0; MACROCYTOSIS 0; OVALOCYTE 0; ROULEAU 0; SICKELED CELLS 0; TARGET CELLS 0; TEAR DROP CELLS 0; TOXIC GRANULATION 0
[2021-12-11 09:20] LABS: ALBUMIN 1.2 g/dl (3.4-5.0); BLOOD UREA NITROGEN 57.2 mg/dL (7-18); CALCIUM 7.7 mg/dL (8.5-10.1)
[2021-12-11 09:23] LABS: CREATININE 0.4 mg/dL (0.55-1.3)
[2021-12-11 09:24] LABS: BILIRUBIN,TOTAL 0.4 mg/dL (0.2-1); TOT PROT 3.9 g/dl (6.4-8.2)
[2021-12-11] MEDS: POTASSIUM CHLORIDE ORAL LIQUID 20 MEQ/15 ML PO SCH (09:52)
[2021-12-11] MEDS: PANTOPRAZOLE SODIUM 40 MG VIAL IVPUSH SCH ×2 (09:52→21:21)
[2021-12-11] MEDS: VORICONAZOLE 200 MG NR SCH ×2 (09:53→21:22)
[2021-12-11] MEDS: ARTIFICIAL TEARS (POLYVINYL ALCOHOL) OPTH DROPS OU PRN (09:56)
[2021-12-11] MEDS ORDERED: NOREPINEPHRINE BITARTRATE/D5W 8 MG/250 ML BAG IVPB SCH ×2 (10:15→16:30)
[2021-12-11] MEDS: ALBUMIN HUMAN 25% 12.5 GM/50 ML VIAL IV SCH ×2 (10:19→10:37)
[2021-12-11] MEDS ORDERED: FUROSEMIDE 40 MG/4 ML INJECTABLE VIAL IVPUSH ONE (11:15)
[2021-12-11 11:32] LABS: ARTERIAL BLD GAS O2 SATURATION 91.7 % (95-98); ARTERIAL BLOOD GAS BASE EXCESS 12.3 mmol/L (-2-2); ARTERIAL BLOOD GAS PO2 64.9 mmHg (80-100); ARTERIAL BLOOD GAS pH 7.387 (7.350-7.450)
[2021-12-11 11:33] LABS: VENT MODE AC; VENT RATE 24
[2021-12-11] MEDS: FUROSEMIDE INJECTION 100 MG in SODIUM CHLORIDE 40 ML IVPB SCH (12:38)
[2021-12-11] MEDS: VASOPRESSIN 40 UNITS/100 ML BAG IV SCH (12:55)
[2021-12-11] MEDS: DEXMEDETOMIDINE PREMIX 400 MCG/100 ML BAG IVPB SCH (12:58)
[2021-12-11] MEDS ORDERED: NOREPINEPHRINE BITARTRATE 4 MG/4 ML ML IV ONE ×2 (16:16→20:05)
[2021-12-11] MEDS ORDERED: TRIPLE LUMEN FLUSH 4 ML ML IVPUSH PRN (19:54)
[2021-12-11] MEDS ORDERED: NOREPINEPHRINE BITARTRATE 16,000 MCG in SODIUM CHLORIDE 484 ML IV SCH (20:15)
[2021-12-11] MEDS: CHLORHEXIDINE GLUCONATE 4% CLEANSER FOR DECOLONIZATION TP SCH (21:21)
[2021-12-12] MEDS: FUROSEMIDE INJECTION 100 MG in SODIUM CHLORIDE 40 ML IVPB SCH (01:31)
[2021-12-12] MEDS: FENTANYL NS IVPB 500 MCG/100 ML BAG IVPB SCH ×2 (03:00→14:13)
[2021-12-12] MEDS: dilTIAZem HCL 30 MG TABLET PO SCH ×3 (05:58→21:32)
[2021-12-12 07:39] LABS: BASO % 0.5 % (0-2.0); EOS % 0.8 % (0-4.5); HEMATOCRIT 24.9 % (32.4-45.2); HEMOGLOBIN 7.9 GM/dL (10.7-15.3); MCH 29.6 pg (25.7-33.7); MCHC 31.5 g/dl (32.0-36.0); MEAN CELL VOLUME 94.1 fl (80-96); MEAN PLT VOLUME 11.7 fl (7.5-11.1); MONO % 4.5 % (3.8-10.2); NEUT % 87.2 % (42.8-82.8); PLATELET COUNT 60 10^3/uL (134-434); RBC 2.65 M/mm3 (3.60-5.2); RDW 16.6 % (11.6-15.6); WHITE BLOOD COUNT 6.4 K/mm3 (4.0-10.0)
[2021-12-12 08:01] LABS: BLOOD UREA NITROGEN 54.5 mg/dL (7-18); CALCIUM 7.7 mg/dL (8.5-10.1)
[2021-12-12 08:04] LABS: CREATININE 0.3 mg/dL (0.55-1.3)
[2021-12-12 08:06] LABS: BILIRUBIN,TOTAL 0.6 mg/dL (0.2-1); TOT PROT 4.3 g/dl (6.4-8.2)
[2021-12-12 08:11] LABS: ALBUMIN 1.8 g/dl (3.4-5.0)
[2021-12-12 08:30] LABS: ARTERIAL BLD GAS O2 SATURATION 94.7 % (95-98); ARTERIAL BLOOD GAS BASE EXCESS 16.2 mmol/L (-2-2); ARTERIAL BLOOD GAS PO2 78.7 mmHg (80-100); ARTERIAL BLOOD GAS pH 7.373 (7.350-7.450)
[2021-12-12 08:33] LABS: ALLENS TEST POSITIVE
[2021-12-12 08:34] LABS: VENT MODE A/C; VENT RATE 24
[2021-12-12] MEDS: POTASSIUM CHLORIDE ORAL LIQUID 20 MEQ/15 ML PO SCH (09:28)
[2021-12-12] MEDS: VORICONAZOLE 200 MG NR SCH ×2 (09:28→21:32)
[2021-12-12] MEDS: PANTOPRAZOLE SODIUM 40 MG VIAL IVPUSH SCH ×2 (09:28→21:32)
[2021-12-12] MEDS: INSULIN SLIDING SCALE (NOVOLOG) 1 VIAL SQ SCH ×3 (12:06→21:33)
[2021-12-12] MEDS: NOREPINEPHRINE 0.9 % NACL 8 MG/250 ML BAG IVPB SCH (18:15)
[2021-12-12] MEDS: DEXMEDETOMIDINE PREMIX 400 MCG/100 ML BAG IVPB SCH (18:34)
[2021-12-12] MEDS: VASOPRESSIN 40 UNITS/100 ML BAG IV SCH (18:55)
[2021-12-12] MEDS: CHLORHEXIDINE GLUCONATE 4% CLEANSER FOR DECOLONIZATION TP SCH (21:32)
[2021-12-12] MEDS ORDERED: POTASSIUM CHLORIDE ORAL LIQUID 20 MEQ/15 ML PO SCH (22:00)
[2021-12-13] MEDS: FUROSEMIDE INJECTION 100 MG in SODIUM CHLORIDE 40 ML IVPB SCH (01:02)
[2021-12-13] MEDS: FENTANYL NS IVPB 500 MCG/100 ML BAG IVPB SCH ×3 (01:08→10:00)
[2021-12-13] MEDS: dilTIAZem HCL 30 MG TABLET PO SCH ×4 (05:48→21:42)
[2021-12-13] MEDS: INSULIN SLIDING SCALE (NOVOLOG) 1 VIAL SQ SCH ×4 (06:11→21:42)
[2021-12-13 07:29] LABS: HEMATOCRIT 22.2 % (32.4-45.2); MCH 29.5 pg (25.7-33.7); MCHC 31.6 g/dl (32.0-36.0); MEAN CELL VOLUME 93.5 fl (80-96); MEAN PLT VOLUME 10.8 fl (7.5-11.1); PLATELET COUNT 62 10^3/uL (134-434); RBC 2.38 M/mm3 (3.60-5.2); RDW 16.7 % (11.6-15.6); WHITE BLOOD COUNT 5.2 K/mm3 (4.0-10.0)
[2021-12-13 07:49] LABS: CHLORIDE 96 mmol/L (98-107); SODIUM 145 mmol/L (136-145)
[2021-12-13 07:51] LABS: CALCIUM 7.4 mg/dL (8.5-10.1)
[2021-12-13 07:52] LABS: ALBUMIN 1.5 g/dl (3.4-5.0); BLOOD UREA NITROGEN 41.8 mg/dL (7-18); GLUCOSE,RANDOM 96 mg/dL (74-106)
[2021-12-13 07:55] LABS: CREATININE 0.3 mg/dL (0.55-1.3); SGOT/AST 52 U/L (15-37); SGPT/ALT 83 U/L (13-61)
[2021-12-13 07:57] LABS: BILIRUBIN,TOTAL 0.5 mg/dL (0.2-1); TOT PROT 3.9 g/dl (6.4-8.2)
[2021-12-13 07:58] LABS: ALK PHOS 108 U/L (45-117)
[2021-12-13] MEDS ORDERED: POTASSIUM PHOSPHATE 30 MM in DEXTROSE 5%-WATER - 250 ML IVPB ONE (08:48)
[2021-12-13] MEDS ORDERED: POTASSIUM CHLORIDE ORAL LIQUID 20 MEQ/15 ML PO ONE (08:50)
[2021-12-13 09:00] LABS: ANION GAP 4 MMOL/L (8-16); CO2 > 45 mmol/L (21-32)
[2021-12-13] MEDS: PANTOPRAZOLE SODIUM 40 MG VIAL IVPUSH SCH ×2 (09:23→21:37)
[2021-12-13] MEDS: POTASSIUM CHLORIDE ORAL LIQUID 20 MEQ/15 ML PO SCH ×2 (09:23→21:37)
[2021-12-13] MEDS: VORICONAZOLE 200 MG NR SCH ×2 (09:24→23:00)
[2021-12-13] MEDS: KCL 10 MEQ IVPB 10 MEQ/100 ML INFUS.BAG IVPB SCH ×2 (09:25→11:15)
[2021-12-13 09:29] LABS: MAGNESIUM 1.7 mg/dL (1.8-2.4)
[2021-12-13 09:33] LABS: PHOSPHOROUS 2.6 mg/dL (2.5-4.9)
[2021-12-13 09:45] LABS: ANISOCYTOSIS 1+; MACROCYTOSIS 1+
[2021-12-13] MEDS: DEXMEDETOMIDINE PREMIX 400 MCG/100 ML BAG IVPB SCH (11:16)
[2021-12-13] MEDS ORDERED: PROPOFOL 1,000,000 MCG/100 ML VIAL IVPB SCH (11:30)
[2021-12-13] MEDS ORDERED: MORPHINE SULFATE/0.9% NACL/PF 100 MG/100 ML BAG IVPB SCH (15:45)
[2021-12-13] MEDS: dilTIAZem HCL 50 MG/10 ML - 10 ML VIAL IVPUSH PRN (18:10)
[2021-12-13] MEDS: CHLORHEXIDINE GLUCONATE 4% CLEANSER FOR DECOLONIZATION TP SCH (21:37)
[2021-12-14 00:14] VITALS: RESP 24
[2021-12-14] MEDS: NOREPINEPHRINE 0.9 % NACL 8 MG/250 ML BAG IVPB SCH (03:46)
[2021-12-14] MEDS: FUROSEMIDE INJECTION 100 MG in SODIUM CHLORIDE 40 ML IVPB SCH (04:02)
[2021-12-14] MEDS: dilTIAZem HCL 30 MG TABLET PO SCH (05:58)
[2021-12-14 06:19] VITALS: TEMP 98
[2021-12-14] MEDS: INSULIN SLIDING SCALE (NOVOLOG) 1 VIAL SQ SCH (06:24)
[2021-12-14] MEDS: DEXMEDETOMIDINE PREMIX 400 MCG/100 ML BAG IVPB SCH (07:47)
[2021-12-14 10:23] VITALS: BP 106/70; PULSE 93
[2021-12-14] MEDS ORDERED: LORazepam 2 MG/ML SDV VIAL IVPUSH ONE (10:23)
== END 2021-12-14 11:00 | disposition expired | DRG 207 ==
LOC: JER 11:34 → JERBED 17:21 → JICU 19:00
PROVIDERS: ADMIT Internal Medicine Pulmonary Disease; ATTEND Internal Medicine Pulmonary Disease
PROC: 5A1955Z Respiratory Ventilation, Greater than 96 Consecutive Hours (ICD-10-PCS; principal; 2021-11-22)
PROC: 0BH17EZ Insertion of Endotracheal Airway into Trachea, Via Natural or Artificial Opening (ICD-10-PCS; 2021-11-22)
PROC: 02H633Z Insertion of Infusion Device into Right Atrium, Percutaneous Approach (ICD-10-PCS; 2021-11-22)
PROC: B548ZZA Ultrasonography of Superior Vena Cava, Guidance (ICD-10-PCS; 2021-11-22)
PROC: 03HY32Z Insertion of Monitoring Device into Upper Artery, Percutaneous Approach (ICD-10-PCS; 2021-11-22)
PROC: 4A133B1 Monitoring of Arterial Pressure, Peripheral, Percutaneous Approach (ICD-10-PCS; 2021-11-22)
PROC: 4A133J1 Monitoring of Arterial Pulse, Peripheral, Percutaneous Approach (ICD-10-PCS; 2021-11-22)
PROC: 02HV33Z Insertion of Infusion Device into Superior Vena Cava, Percutaneous Approach (ICD-10-PCS; 2021-11-29)
PROC: B548ZZA Ultrasonography of Superior Vena Cava, Guidance (ICD-10-PCS; 2021-11-29)
PROC: 04HY32Z Insertion of Monitoring Device into Lower Artery, Percutaneous Approach (ICD-10-PCS; 2021-11-30)
PROC: 4A133B1 Monitoring of Arterial Pressure, Peripheral, Percutaneous Approach (ICD-10-PCS; 2021-11-30)
PROC: 4A133J1 Monitoring of Arterial Pulse, Peripheral, Percutaneous Approach (ICD-10-PCS; 2021-11-30)
PROC: 03HY32Z Insertion of Monitoring Device into Upper Artery, Percutaneous Approach (ICD-10-PCS; 2021-12-07)
PROC: 4A133B1 Monitoring of Arterial Pressure, Peripheral, Percutaneous Approach (ICD-10-PCS; 2021-12-07)
PROC: 4A133J1 Monitoring of Arterial Pulse, Peripheral, Percutaneous Approach (ICD-10-PCS; 2021-12-07)
PROC: 02HV33Z Insertion of Infusion Device into Superior Vena Cava, Percutaneous Approach (ICD-10-PCS; 2021-12-11)
PROC: B548ZZA Ultrasonography of Superior Vena Cava, Guidance (ICD-10-PCS; 2021-12-11)
DX: J84.9 Interstitial pulmonary disease, unspecified (principal); A41.9 Sepsis, unspecified organism; R65.21 Severe sepsis with septic shock; J80 Acute respiratory distress syndrome; J16.8 Pneumonia due to other specified infectious organisms; I24.8 Other forms of acute ischemic heart disease; J93.83 Other pneumothorax; R64 Cachexia; N17.9 Acute kidney failure, unspecified; E87.29 Other acidosis; K92.2 Gastrointestinal hemorrhage, unspecified; D62 Acute posthemorrhagic anemia; D61.818 Other pancytopenia; I10 Essential (primary) hypertension; E78.5 Hyperlipidemia, unspecified; Z99.81 Dependence on supplemental oxygen; R74.01 Elevation of levels of liver transaminase levels; D69.6 Thrombocytopenia, unspecified; I27.20 Pulmonary hypertension, unspecified; E05.90 Thyrotoxicosis, unspecified without thyrotoxic crisis or storm; R73.9 Hyperglycemia, unspecified; E87.5 Hyperkalemia; E88.09 Other disorders of plasma-protein metabolism, not elsewhere classified; E83.41 Hypermagnesemia; R79.89 Other specified abnormal findings of blood chemistry; K52.9 Noninfective gastroenteritis and colitis, unspecified
CPT/HCPCS: 0241U-QW; 31500; 36415; 36430; 36600; 70450-TC; 71045-TC-FY; 71250-TC; 71275-TC; 76705-TC; 80048; 80053; 81003; 82103; 82272; 82438; 82550; 82553; 82728; 82803; 82962; 83010; 83540; 83550; 83605; 83615; 83735; 83880; 84100; 84302; 84439; 84443; 84445; 84481; 84484; 84999; 85025; 85027; 85045; 85362; 85384; 85610; 85730; 86480; 86665; 86704; 86707; 86713; 86803; 86850; 86900; 86901; 86922; 87040; 87045; 87046; 87070; 87081; 87102; 87116; 87205; 87206; 87209; 87210; 87281; 87305; 87324; 87340; 87350; 87389; 87449; 87497; 87517; 87529; 87899; 93005; 93010; 94002; 94640; 94660; 99291; G0480; J3465; J3490; P9047; P9058; Q9967